=== PATIENT | female | born 1955 | race Caucasian/White ===

== ENCOUNTER 2016-05-04 15:09 | Inpatient (IN) | payer OTHER ==
[~2016-05-04] VITALS: Ht 175.3 cm; Wt 119.7 kg
[2016-05-04] MEDS ORDERED: cloNIDine HCL 0.1 MG TAB PO ONE (15:30)
[2016-05-04 15:46] LABS: Basophils # (auto) 0 uL; Basophils % (auto) 0.1 % (0.0-2.0); Eosinophils # (auto) 0.2 uL; Eosinophils % (auto) 1.6 % (0.0-7.0); Hemoglobin 14.1 g/dL (12.2-16.2); Lymphocytes # (auto) 2.3 uL; Lymphocytes % (auto) 20.8 % (10.0-50.0); Mean Corpuscular Hemoglobin 30.1 pg (28.0-32.0); Mean Corpuscular Hgb Conc. 32.9 g/dL (32.0-36.0); Mean Corpuscular Volume 91.6 fL (80.0-100.0); Mean Platelet Volume 10.3 fL (7.4-10.4); Monocytes # (auto) 0.4 uL; Monocytes % (auto) 3.6 % (0.0-12.0); Neutrophils # (auto) 8.2 uL; Neutrophils % (auto) 73.9 % (37.0-80.0); Platelet Count (auto) 216 10^3/uL (140-450); Red Cell Distribution Width 14.8 % (11.6-16.0); White Blood Cell 11.1 10^3/uL (4.4-10.8)
[2016-05-04] MEDS ORDERED: FUROSEMIDE 40 MG/4 ML VIAL IV ONE ×2 (16:00→17:00)
[2016-05-04] MEDS ORDERED: methylPREDNISolone SOD SUCC 125 MG/2 ML VL IV ONE (16:00)
[2016-05-04 16:08] LABS: Albumin 3.1 g/dL (3.4-5.0); Alkaline Phosphatase 94 U/L (45-117); Anion Gap 10 (5-15); Aspartate Aminotransferase 35 U/L (15-37); BUN/Creatinine Ratio 18.8; Blood Urea Nitrogen 15 mg/dL (7-18); Calcium 7.9 mg/dL (8.5-10.1); Carbon Dioxide 22 mmol/L (21-32); Chloride 112 mmol/L (98-107); GFR African American 94 mL/min; GFR Non-African American 78 mL/min; Glucose 117 mg/dL (74-106); Potassium 4.5 mmol/L (3.5-5.1); Sodium 144 mmol/L (136-145); Total Protein 6.8 g/dL (6.4-8.2)
[2016-05-04] MEDS ORDERED: ALBUTEROL SULF 2.5 MG/0.5ML(0.5%) NEB SOLN NEB PRN (16:30)
[2016-05-04] MEDS ORDERED: MORPHINE SULF INJ 2 MG/ML SYRINGE 1ML IV PRN ×2 (16:30)
[2016-05-04] MEDS ORDERED: DEXTROSE (50%) 50ML SYRG IV PRN (16:30)
[2016-05-04] MEDS ORDERED: NITROGLYCERIN 0.4 MG SL TAB SL PRN (16:30)
[2016-05-04] MEDS ORDERED: TEMAZEPAM 15 MG CAP PO PRN (16:30)
[2016-05-04] MEDS ORDERED: HYDROcodone-ACET 5/325MG TAB PO PRN (16:30)
[2016-05-04] MEDS ORDERED: PROMETHAZINE HCL 25 MG/ML 1ML IV PRN (16:30)
[2016-05-04] MEDS ORDERED: ACETAMINOPHEN 500 MG TAB PO PRN (16:30)
[2016-05-04] MEDS ORDERED: LORazepam 0.5 MG TAB PO PRN (16:30)
[2016-05-04] MEDS ORDERED: LACTULOSE 20Gm/30ML SOLN PO PRN (16:30)
[2016-05-04 16:56] LABS: B-Type Natriuretic Peptide 350.33 pg/mL (0-100); Temperature: 23.5 C (20.0-25.0)
[2016-05-04] MEDS ORDERED: ASPirin 81 mg TAB PO ONE (17:00)
[2016-05-04] MEDS: ACCU-CHEK COMFORT CURVE STRIP VI SCH ×2 (17:00→22:50)
[2016-05-04] MEDS ORDERED: CARVEDILOL 3.125 MG TAB PO ONE (17:00)
[2016-05-04] MEDS ORDERED: ENALAPRIL MALEATE 2.5 MG TAB PO ONE (17:00)
[2016-05-04] MEDS ORDERED: ENOXAPARIN SOD 40 MG/0.4 ML SYRINGE SC ONE (17:15)
[2016-05-04] MEDS: NITROGLYCERIN 0.2MG/HR TOPICAL PATCH TD SCH (17:18)
[2016-05-04] MEDS ORDERED: IBUPROFEN 800 MG TAB PO ONE (17:45)
[2016-05-04] MEDS: InsuLIN REG 1unit/0.01ml Soln (100units/ml) SC SCH ×2 (17:57→22:50)
[2016-05-04] MEDS: IPRATROPIUM BROM 0.5 MG/2.5ML INH SOL NEB SCH ×2 (18:00→23:52)
[2016-05-04] MEDS: ALBUTEROL SULF 2.5 MG/0.5ML(0.5%) NEB SOLN NEB SCH ×2 (18:00→23:52)
[2016-05-04] MEDS ORDERED: IOHEXOL 350 MG/ML 100ML IJ ONE (19:48)
[2016-05-04 22:00] VITALS: BP 188/86
[2016-05-04] MEDS: SODIUM CHLOR 0.9% PF (SALINE LOCK) 10ML VIAL IV SCH (22:50)
[2016-05-04] MEDS: CARVEDILOL 3.125 MG TAB PO SCH (22:50)
[2016-05-04] MEDS: DOXYCYCLINE 100 MG TAB/CAP PO SCH (22:50)
[2016-05-05] MEDS ORDERED: GLIP-115 PO (02:53)
[2016-05-05] MEDS ORDERED: IBUP800T24 PO (02:53)
[2016-05-05] MEDS ORDERED: CAR125T PO (02:53)
[2016-05-05 04:30] VITALS: BP 141/72
[2016-05-05] MEDS: ALBUTEROL SULF 2.5 MG/0.5ML(0.5%) NEB SOLN NEB SCH ×3 (05:20→18:11)
[2016-05-05] MEDS: IPRATROPIUM BROM 0.5 MG/2.5ML INH SOL NEB SCH ×3 (05:20→18:11)
[2016-05-05] MEDS: SODIUM CHLOR 0.9% PF (SALINE LOCK) 10ML VIAL IV SCH (05:29)
[2016-05-05 06:14] LABS: Basophils # (auto) 0 uL; Eosinophils # (auto) 0 uL; Hemoglobin 14.4 g/dL (12.2-16.2); Lymphocytes # (auto) 1.1 uL; Lymphocytes % (auto) 13.5 % (10.0-50.0); Mean Corpuscular Hemoglobin 31.3 pg (28.0-32.0); Mean Corpuscular Hgb Conc. 34.2 g/dL (32.0-36.0); Mean Corpuscular Volume 91.4 fL (80.0-100.0); Mean Platelet Volume 10.9 fL (7.4-10.4); Monocytes # (auto) 0.1 uL; Monocytes % (auto) 1.5 % (0.0-12.0); Neutrophils # (auto) 6.7 uL; Platelet Count (auto) 198 10^3/uL (140-450); Red Cell Distribution Width 14.6 % (11.6-16.0); White Blood Cell 7.9 10^3/uL (4.4-10.8)
[2016-05-05 06:25] LABS: Albumin 3.2 g/dL (3.4-5.0); BUN/Creatinine Ratio 18.4; Calcium 8.1 mg/dL (8.5-10.1); Potassium 3.5 mmol/L (3.5-5.1); Total Protein 6.4 g/dL (6.4-8.2)
[2016-05-05 06:43] LABS: B-Type Natriuretic Peptide 468.6 pg/mL (0-100); Temperature: 22.5 C (20.0-25.0)
[2016-05-05] MEDS: InsuLIN REG 1unit/0.01ml Soln (100units/ml) SC SCH ×3 (07:00→17:00)
[2016-05-05] MEDS: ACCU-CHEK COMFORT CURVE STRIP VI SCH ×3 (07:47→17:00)
[2016-05-05 09:00] VITALS: BP 128/60
[2016-05-05] MEDS ORDERED: POTASSIUM CHL 20 Meq TABLET PO SCH (10:00)
[2016-05-05] MEDS ORDERED: ENALAPRIL MALEATE 2.5 MG TAB PO SCH (10:00)
[2016-05-05] MEDS ORDERED: FUROSEMIDE 40 MG/4 ML VIAL IV SCH (10:00)
[2016-05-05] MEDS: NITROGLYCERIN 0.2MG/HR TOPICAL PATCH TD SCH (10:00)
[2016-05-05] MEDS ORDERED: ENOXAPARIN SOD 40 MG/0.4 ML SYRINGE SC SCH ×2 (10:00)
[2016-05-05] MEDS ORDERED: ASPirin 81 mg TAB PO SCH (10:00)
[2016-05-05] MEDS: CARVEDILOL 3.125 MG TAB PO SCH (12:53)
[2016-05-05] MEDS: DOXYCYCLINE 100 MG TAB/CAP PO SCH (12:54)
[2016-05-05 13:00] VITALS: BP 192/96
[2016-05-05] MEDS ORDERED: ASPI81CH43 PO (14:22)
[2016-05-05] MEDS ORDERED: ENA2.5T PO (14:22)
[2016-05-05] MEDS ORDERED: FURO20TA PO (14:22)
[2016-05-05] MEDS ORDERED: CAR3125T PO (14:22)
[2016-05-05 16:48] VITALS: BP 120/69
[2016-05-05 17:47] VITALS: BP 136/76
== END 2016-05-05 18:00 | disposition home health service (06) | DRG 292 ==
LOC: ER 15:16 → TELE 15:17 → TELE-CENTR 20:30
PROVIDERS: ADMIT Internal Medicine; ATTEND Internal Medicine
DX: I11.0 Hypertensive heart disease with heart failure (principal); J44.1 Chronic obstructive pulmonary disease with (acute) exacerbation; I50.31 Acute diastolic (congestive) heart failure; E11.9 Type 2 diabetes mellitus without complications; E66.9 Obesity, unspecified; I10 Essential (primary) hypertension; K44.9 Diaphragmatic hernia without obstruction or gangrene; N95.1 Menopausal and female climacteric states; Z80.49 Family history of malignant neoplasm of other genital organs; Z82.49 Family history of ischemic heart disease and other diseases of the circulatory system; Z83.3 Family history of diabetes mellitus; Z68.39 Body mass index [BMI] 39.0-39.9, adult; Z71.6 Tobacco abuse counseling
CPT/HCPCS: 36415; 71010; 71275; 80053; 80061; 82550; 82962; 83036; 83880; 84443; 84484; 85025; 85379; 93005; 93306; 94640; 94761; 96372; 96374; 96375; 96376

== ENCOUNTER 2016-10-09 18:08 | Inpatient (IN) | payer SELFPAY ==
[~2016-10-09] VITALS: Ht 175.3 cm; Wt 117.0 kg
[~2016-10-09 18:08] MED LIST: ASPI81CH43 PO; CAR3125T PO; ENA2.5T PO; FURO20TA PO; GLIP-115 PO
[2016-10-09 18:46] LABS: Basophils # (auto) 0 uL; Basophils % (auto) 0.3 % (0.0-2.0); CONDITION Y; Eosinophils # (auto) 0.2 uL; Eosinophils % (auto) 1.7 % (0.0-7.0); Hematocrit 44.1 % (36.0-46.0); Hemoglobin 14.4 g/dL (12.2-16.2); Lymphocytes % (auto) 20.8 % (10.0-50.0); Mean Corpuscular Hemoglobin 29.8 pg (28.0-32.0); Mean Corpuscular Hgb Conc. 32.7 g/dL (32.0-36.0); Mean Corpuscular Volume 91.1 fL (80.0-100.0); Monocytes # (auto) 0.5 uL; Monocytes % (auto) 5.4 % (0.0-12.0); Neutrophils # (auto) 6.8 uL; Neutrophils % (auto) 71.8 % (37.0-80.0); Platelet Count (auto) 263 10^3/uL (140-450); Red Cell Distribution Width 15.6 % (11.6-16.0); White Blood Cell 9.4 10^3/uL (4.4-10.8)
[2016-10-09 19:11] LABS: Albumin 2.9 g/dL (3.4-5.0); Anion Gap 8 (5-15); Aspartate Aminotransferase 14 U/L (15-37); BUN/Creatinine Ratio 18.7; Blood Urea Nitrogen 17 mg/dL (7-18); Calcium 7.7 mg/dL (8.5-10.1); Carbon Dioxide 28 mmol/L (21-32); Chloride 109 mmol/L (98-107); GFR African American 81 mL/min; GFR Non-African American 67 mL/min; Glucose 116 mg/dL (74-106); Magnesium 2.5 mg/dL (1.6-2.6); Potassium 3.9 mmol/L (3.5-5.1); Sodium 145 mmol/L (136-145)
[2016-10-09 19:16] LABS: Alkaline Phosphatase 88 U/L (45-117); Bilirubin, Total 0.8 mg/dL (0.2-1.0); Total Protein 6.5 g/dL (6.4-8.2)
[2016-10-09 19:22] LABS: B-Type Natriuretic Peptide 339.66 pg/mL (0-100)
[2016-10-09 19:24] LABS: Temperature: 23.1 C (20.0-25.0)
[2016-10-09] MEDS ORDERED: CARVEDILOL 12.5 MG TAB PO ONE (20:00)
[2016-10-09] MEDS ORDERED: ALBUTEROL SULF 2.5 MG/0.5ML(0.5%) NEB SOLN NEB ONE (20:30)
[2016-10-09] MEDS ORDERED: IPRATROPIUM BROM 0.5 MG/2.5ML INH SOL NEB ONE (20:30)
[2016-10-09] MEDS ORDERED: FUROSEMIDE 20 MG/2 ML VIAL IV ONE (20:30)
[2016-10-09] MEDS ORDERED: glipiZIDE 5 MG TAB PO ONE (20:45)
[2016-10-09] MEDS ORDERED: CARV25TA PO (21:13)
[2016-10-09] MEDS ORDERED: FURO40TA PO (21:13)
[2016-10-09] MEDS ORDERED: CAR125T PO (21:13)
[2016-10-10] MEDS ORDERED: ONDANSETRON HCL 4 MG/2 ML VIAL IV PRN (06:45)
[2016-10-10] MEDS ORDERED: cloNIDine HCL 0.1 MG TAB PO PRN (06:45)
[2016-10-10] MEDS ORDERED: TEMAZEPAM 15 MG CAP PO PRN (06:45)
[2016-10-10] MEDS ORDERED: NITROGLYCERIN 0.4 MG SL TAB SL PRN (06:45)
[2016-10-10] MEDS ORDERED: DEXTROSE (50%) 50ML SYRG IV PRN (06:45)
[2016-10-10] MEDS ORDERED: ACETAMINOPHEN 325 MG TAB PO PRN (06:45)
[2016-10-10] MEDS ORDERED: IPRATROPIUM BROM 0.5 MG/2.5ML INH SOL NEB PRN (06:45)
[2016-10-10] MEDS ORDERED: ALBUTEROL SULF 2.5 MG/0.5ML(0.5%) NEB SOLN NEB PRN (06:45)
[2016-10-10] MEDS ORDERED: MORPHINE SULF INJ 2 MG/ML SYRINGE 1ML IV PRN (06:45)
[2016-10-10] MEDS: FAMOTIDINE 20 MG TAB PO SCH ×2 (10:00→21:34)
[2016-10-10] MEDS: ENOXAPARIN SOD 40 MG/0.4 ML SYRINGE SC SCH (10:00)
[2016-10-10 10:31] VITALS: BP 178/85
[2016-10-10] MEDS: CARVEDILOL 12.5 MG TAB PO SCH (11:15)
[2016-10-10] MEDS: FUROSEMIDE 40 MG TAB PO SCH (11:15)
[2016-10-10] MEDS: ASPirin 81 mg TAB PO SCH (11:15)
[2016-10-10] MEDS: ACCU-CHEK COMFORT CURVE STRIP VI SCH ×2 (11:26→16:56)
[2016-10-10 11:30] VITALS: BP 150/77
[2016-10-10] MEDS: POTASSIUM CHL 10% (20 MEQ/15ML) ORAL SOLN PO ONE ×2 (12:00→12:12)
[2016-10-10] MEDS ORDERED: FUROSEMIDE 100 MG/10ML VIAL IV ONE (12:00)
[2016-10-10] MEDS: InsuLIN REG 1unit/0.01ml Soln (100units/ml) SC SCH ×2 (12:11→16:56)
[2016-10-10] MEDS ORDERED: methylPREDNISolone SOD SUCC 40 MG/ML VL IV ONE (15:30)
[2016-10-10 17:13] VITALS: BP 156/78
[2016-10-10] MEDS: guaiFENesin-DEXTROMETHORPHAN 5ML SYR PO PRN ×2 (17:21→21:35)
[2016-10-10 20:00] VITALS: BP 143/69
[2016-10-10] MEDS: methylPREDNISolone SOD SUCC 40 MG/ML VL IV SCH (21:34)
[2016-10-11] MEDS: ACCU-CHEK COMFORT CURVE STRIP VI SCH ×4 (00:05→17:03)
[2016-10-11] MEDS: InsuLIN REG 1unit/0.01ml Soln (100units/ml) SC SCH ×4 (00:06→18:00)
[2016-10-11 05:00] VITALS: BP 145/85
[2016-10-11 06:33] LABS: Basophils # (auto) 0 uL; Basophils % (auto) 0.2 % (0.0-2.0); CONDITION Y; Eosinophils # (auto) 0 uL; Hematocrit 46.1 % (36.0-46.0); Hemoglobin 15.1 g/dL (12.2-16.2); Lymphocytes % (auto) 10.4 % (10.0-50.0); Mean Corpuscular Hemoglobin 29.9 pg (28.0-32.0); Mean Corpuscular Hgb Conc. 32.7 g/dL (32.0-36.0); Mean Corpuscular Volume 91.2 fL (80.0-100.0); Mean Platelet Volume 9.6 fL (7.4-10.4); Monocytes # (auto) 0.1 uL; Monocytes % (auto) 1.5 % (0.0-12.0); Neutrophils # (auto) 8.2 uL; Neutrophils % (auto) 87.9 % (37.0-80.0); Platelet Count (auto) 264 10^3/uL (140-450); Red Cell Distribution Width 14.8 % (11.6-16.0); SUSPECT SEE PRINTOUT; White Blood Cell 9.3 10^3/uL (4.4-10.8)
[2016-10-11 07:01] LABS: Albumin 3.2 g/dL (3.4-5.0); BUN/Creatinine Ratio 17.6; Calcium 8.5 mg/dL (8.5-10.1); Magnesium 2.5 mg/dL (1.6-2.6); Total Protein 7.1 g/dL (6.4-8.2)
[2016-10-11 08:00] VITALS: BP 157/79
[2016-10-11 09:29] VITALS: BP 157/79
[2016-10-11] MEDS: ENOXAPARIN SOD 40 MG/0.4 ML SYRINGE SC SCH (10:00)
[2016-10-11] MEDS: CARVEDILOL 12.5 MG TAB PO SCH (10:00)
[2016-10-11] MEDS: FAMOTIDINE 20 MG TAB PO SCH ×2 (10:37→21:40)
[2016-10-11] MEDS: ASPirin 81 mg TAB PO SCH (10:37)
[2016-10-11] MEDS: methylPREDNISolone SOD SUCC 40 MG/ML VL IV SCH (10:38)
[2016-10-11] MEDS: FUROSEMIDE 40 MG TAB PO SCH (10:38)
[2016-10-11] MEDS ORDERED: DOBUTamine 1000MCG/ML 0 ML IV ONE (11:15)
[2016-10-11 17:08] VITALS: BP 149/54
[2016-10-11 20:00] VITALS: BP 163/85
[2016-10-11 21:30] VITALS: BP 163/85
[2016-10-11] MEDS ORDERED: ATORVASTATIN 20 MG TAB PO SCH (22:00)
[2016-10-12] MEDS: ACCU-CHEK COMFORT CURVE STRIP VI SCH ×4 (00:02→17:39)
[2016-10-12 05:00] VITALS: BP 166/85
[2016-10-12] MEDS: InsuLIN REG 1unit/0.01ml Soln (100units/ml) SC SCH ×4 (05:21→18:00)
[2016-10-12 06:34] LABS: Calcium 8.3 mg/dL (8.5-10.1); Potassium 3.5 mmol/L (3.5-5.1)
[2016-10-12 06:37] LABS: BUN/Creatinine Ratio 21.4
[2016-10-12 09:00] VITALS: BP 169/90
[2016-10-12] MEDS: FUROSEMIDE 40 MG TAB PO SCH (10:00)
[2016-10-12] MEDS: FAMOTIDINE 20 MG TAB PO SCH (10:00)
[2016-10-12] MEDS ORDERED: predniSONE 20 MG TAB PO SCH (10:00)
[2016-10-12] MEDS: ENOXAPARIN SOD 40 MG/0.4 ML SYRINGE SC SCH (10:00)
[2016-10-12] MEDS: ASPirin 81 mg TAB PO SCH (10:00)
[2016-10-12] MEDS: CARVEDILOL 12.5 MG TAB PO SCH (10:00)
[2016-10-12] MEDS ORDERED: IBUP800T24 PO (10:14)
[2016-10-12 13:00] VITALS: BP 153/77
[2016-10-12] MEDS ORDERED: ATOR20TA50 PO (13:03)
[2016-10-12] MEDS ORDERED: DOBUTamine 1000MCG/ML 250 ML IV ONE (15:02)
[2016-10-12 18:15] VITALS: BP 153/77
== END 2016-10-12 19:15 | disposition home or self-care (01) | DRG 292 ==
LOC: ER 18:14 → TELE 18:15 → TELE-E-ADS 10-10 08:05 → TELE-CENTR 10-10 11:23
PROVIDERS: ADMIT Nurse Practitioner; ATTEND Internal Medicine
DX: I11.0 Hypertensive heart disease with heart failure (principal); J44.1 Chronic obstructive pulmonary disease with (acute) exacerbation; J96.10 Chronic respiratory failure, unspecified whether with hypoxia or hypercapnia; J44.0 Chronic obstructive pulmonary disease with (acute) lower respiratory infection; E11.65 Type 2 diabetes mellitus with hyperglycemia; I34.0 Nonrheumatic mitral (valve) insufficiency; F17.210 Nicotine dependence, cigarettes, uncomplicated; I70.0 Atherosclerosis of aorta; E66.01 Morbid (severe) obesity due to excess calories; E78.5 Hyperlipidemia, unspecified; J20.9 Acute bronchitis, unspecified; I50.33 Acute on chronic diastolic (congestive) heart failure; Z79.4 Long term (current) use of insulin; Z83.3 Family history of diabetes mellitus
CPT/HCPCS: 36415; 71020; 78452; 80048; 80053; 80061; 82962; 83036; 83735; 83880; 84484; 85025; 93005; 93017; 93970; 94640; 96374; J1815

== ENCOUNTER 2017-12-11 20:19 | Emergency (ER) | payer MEDICAID ==
[~2017-12-11] VITALS: Ht 172.7 cm; Wt 117.0 kg
[~2017-12-11 20:19] MED LIST changes: -ASPI81CH43 PO; +CAR125T PO; -CAR3125T PO; +CARV25TA PO; -ENA2.5T PO; -FURO20TA PO; +FURO40TA4 PO; +IBUP800T24 PO
[2017-12-11 21:12] LABS: Basophils # (auto) 0 uL; Eosinophils # (auto) 0.2 uL; Monocytes # (auto) 0.5 uL
[2017-12-11 21:14] LABS: Basophils % (auto) 0.5 % (0.0-2.0); Hematocrit 41.5 % (36.0-46.0); Hemoglobin 13.4 g/dL (12.2-16.2); Lymphocytes # (auto) 2.1 uL; Lymphocytes % (auto) 28.8 % (10.0-50.0); Mean Corpuscular Hgb Conc. 32.2 g/dL (32.0-36.0); Mean Corpuscular Volume 80.6 fL (80.0-100.0); Monocytes % (auto) 6.5 % (0.0-12.0); Neutrophils # (auto) 4.6 uL; Neutrophils % (auto) 61.2 % (37.0-80.0); Nucleated Red Blood Cells % 0.1 %; Platelet Count (auto) 193 10^3/uL (140-450); Red Blood Cells 5.15 10^6/uL (4.0-5.20); White Blood Cell 7.5 10^3/uL (4.4-10.8)
[2017-12-11 21:26] LABS: Albumin 3.1 g/dL (3.4-5.0); Anion Gap 7 (5-15); Blood Urea Nitrogen 10 mg/dL (7-18); Calcium 7.8 mg/dL (8.5-10.1); Carbon Dioxide 24 mmol/L (21-32); Chloride 111 mmol/L (98-107); Glucose 127 mg/dL (74-106); Potassium 3.7 mmol/L (3.5-5.1); Red Cell Distribution Width 24.4 % (11.8-14.3); Sodium 142 mmol/L (136-145)
[2017-12-11 21:28] LABS: Alanine Aminotransferase 20 U/L (13-56); Aspartate Aminotransferase 19 U/L (15-37); BUN/Creatinine Ratio 10.2; GFR African American 74 mL/min; GFR Non-African American 61 mL/min
[2017-12-11 21:32] LABS: Alkaline Phosphatase 84 U/L (45-117); Bilirubin, Total 0.7 mg/dL (0.2-1.0); Total Protein 6.5 g/dL (6.4-8.2)
[2017-12-11 21:45] LABS: Urine Bacteria FEW /hpf (None Seen); Urine Blood Negative /uL (Negative); Urine Hyaline Cast FEW /lpf (0 - 2); Urine Mucus FEW (None Seen); Urine Specific Gravity 1.031 (1.001-1.035); Urine WBC 4 /hpf (0 - 5)
[2017-12-11 23:10] LABS: INR 0.96 (0.9-1.15); Partial Thromboplastin Time 25.7 sec (23.78-33.04); Prothrombin Time 10.3 sec (9.27-12.13)
[2017-12-11 23:38] VITALS: BP 168/95
== END 2017-12-12 00:05 | disposition home or self-care (01) ==
LOC: ER 20:19
DX: I11.0 Hypertensive heart disease with heart failure (principal); I50.9 Heart failure, unspecified; J44.9 Chronic obstructive pulmonary disease, unspecified; E11.9 Type 2 diabetes mellitus without complications; E78.5 Hyperlipidemia, unspecified; F17.210 Nicotine dependence, cigarettes, uncomplicated
CPT/HCPCS: 36415; 36600; 71045; 80053; 81001; 82805; 83735; 83880; 84443; 84484; 85025; 85379; 85610; 85730; 93005

== ENCOUNTER 2018-05-26 11:26 | Emergency (ER) | payer MEDICAID ==
[~2018-05-26] VITALS: Ht 172.7 cm; Wt 114.3 kg
[2018-05-26 12:50] LABS: Urine Bacteria NONE SEEN /hpf (None Seen); Urine Blood Negative /uL (Negative); Urine Mucus FEW (None Seen); Urine Specific Gravity 1.034 (1.001-1.035); Urine WBC 7 /hpf (0 - 5)
[2018-05-26] MEDS ORDERED: HYDROcodone-ACET 10/325MG TAB PO ONE (14:00)
[2018-05-26] MEDS ORDERED: cefTRIAXone 1GM/50ML D5W 50 ML IV ONE (14:00)
[2018-05-26 14:30] LABS: Basophils # (auto) 0 uL; Eosinophils # (auto) 0.1 uL; Eosinophils % (auto) 1.5 % (0.0-7.0); Mean Corpuscular Hemoglobin 24.1 pg (28.0-32.0); Nucleated Red Blood Cells % 0.1 %
[2018-05-26 14:33] LABS: Basophils % (auto) 0.3 % (0.0-2.0); Hematocrit 41.2 % (36.0-46.0); Hemoglobin 12.6 g/dL (12.2-16.2); Lymphocytes # (auto) 1.4 uL; Lymphocytes % (auto) 19.7 % (10.0-50.0); Mean Corpuscular Hgb Conc. 30.6 g/dL (32.0-36.0); Monocytes # (auto) 0.5 uL; Monocytes % (auto) 7.3 % (0.0-12.0); Neutrophils # (auto) 4.9 uL; Neutrophils % (auto) 71.2 % (37.0-80.0); Platelet Count (auto) 206 10^3/uL (140-450); Red Blood Cells 5.22 10^6/uL (4.0-5.20)
[2018-05-26 14:53] LABS: INR 1.04 (0.9-1.15); Partial Thromboplastin Time 26.8 sec (23.78-33.04); Prothrombin Time 11.1 sec (9.27-12.13)
[2018-05-26 15:15] LABS: Potassium 4.2 mmol/L (3.5-5.1)
[2018-05-26 15:24] LABS: Albumin 2.9 g/dL (3.4-5.0); Bilirubin, Total 0.9 mg/dL (0.2-1.0); Calcium 7.9 mg/dL (8.5-10.1); Magnesium 2.3 mg/dL (1.6-2.6); Total Protein 6.5 g/dL (6.4-8.2)
[2018-05-26 19:59] VITALS: BP 145/82
== END 2018-05-26 20:10 | disposition short-term general hospital (02) ==
LOC: ER 11:26
DX: S22.089D Unspecified fracture of T11-T12 vertebra, subsequent encounter for fracture with routine healing (principal); S32.019D Unspecified fracture of first lumbar vertebra, subsequent encounter for fracture with routine healing; L03.311 Cellulitis of abdominal wall; J44.9 Chronic obstructive pulmonary disease, unspecified; E11.9 Type 2 diabetes mellitus without complications; E78.5 Hyperlipidemia, unspecified; I11.0 Hypertensive heart disease with heart failure; I50.9 Heart failure, unspecified; F17.210 Nicotine dependence, cigarettes, uncomplicated; Z88.0 Allergy status to penicillin; Z88.8 Allergy status to other drugs, medicaments and biological substances; Z79.84 Long term (current) use of oral hypoglycemic drugs; Z79.899 Other long term (current) drug therapy; W18.30XD Fall on same level, unspecified, subsequent encounter
CPT/HCPCS: 36415; 72131; 74176; 80053; 81001; 82150; 83605; 83690; 83735; 85025; 85610; 85730; 87040; 93005; 94761; 96365; 96366; 99291; J0696

== ENCOUNTER 2021-12-02 20:46 | Inpatient (IN) | payer OTHER, BC, MEDICAID ==
[~2021-12-02] VITALS: Ht 172.7 cm; Wt 98.0 kg
[~2021-12-02 20:46] MED LIST changes: -GLIP-115 PO; +GLIP5TAB12 PO; -IBUP800T24 PO; +IBUP800T27 PO
[2021-12-02] MEDS ORDERED: FUROSEMIDE 100 MG/10ML VIAL IV ONE (22:15)
[2021-12-02 23:16] LABS: Basophils # (auto) 0 10 ^3/uL (0-0.2); Basophils % (auto) 0.7 % (0.0-2.0); Eosinophils # (auto) 0.1 10 ^3/uL (0-0.8); Eosinophils % (auto) 1.9 % (0.0-7.0); Hematocrit 39.2 % (36.0-46.0); Hemoglobin 13.1 g/dL (12.2-16.2); Lymphocytes # (auto) 1.5 10 ^3/uL (0.4-5.4); Lymphocytes % (auto) 31.2 % (10.0-50.0); Mean Corpuscular Hemoglobin 32.5 pg (28.0-32.0); Mean Corpuscular Hgb Conc. 33.5 g/dL (32.0-36.0); Mean Corpuscular Volume 96.8 fL (80.0-100.0); Monocytes # (auto) 0.3 10 ^3/uL (0-1.3); Monocytes % (auto) 6.4 % (0.0-12.0); Neutrophils # (auto) 2.9 10 ^3/uL (1.6-8.6); Neutrophils % (auto) 59.8 % (37.0-80.0); Nucleated Red Blood Cells % 0.1 %; Red Blood Cells 4.05 10^6/uL (4.0-5.20); Red Cell Distribution Width 15.4 % (11.8-14.3); White Blood Cell 4.8 10^3/uL (4.4-10.8)
[2021-12-02 23:24] LABS: Albumin 2.7 g/dL (3.4-5.0); Calcium 7.9 mg/dL (8.5-10.1); Magnesium 2.4 mg/dL (1.6-2.6); Potassium 3.5 mmol/L (3.5-5.1)
[2021-12-02 23:29] LABS: BUN/Creatinine Ratio 8.8; Bilirubin, Total 0.8 mg/dL (0.2-1.0); CRP High Sensitivity 0.55 mg/dL (< 0.3); Total Protein 5.8 g/dL (6.4-8.2)
[2021-12-03] MEDS ORDERED: CLIN300C8 PO (04:11)
[2021-12-03] MEDS ORDERED: VANCOMYCIN 1GM/250ML 250 ML IV ONE (05:15)
[2021-12-03] MEDS ORDERED: CEFEPIME 2 GM in SODIUM CHL 0.9% 50 ML IV ONE (05:15)
[2021-12-03] MEDS ORDERED: hydrALAZINE HCL 20 MG/ML VL IV PRN (07:00)
[2021-12-03] MEDS ORDERED: HYDROcodone-ACET 5/325MG TAB PO PRN ×2 (07:00→12:00)
[2021-12-03] MEDS ORDERED: ACETAMINOPHEN 325 MG TAB PO PRN (07:00)
[2021-12-03] MEDS ORDERED: DOCUSATE SOD 100 MG CAP PO PRN (07:00)
[2021-12-03] MEDS ORDERED: MORPHINE SULFATE INJ 2 MG/ml SYRG IV PRN (07:00)
[2021-12-03] MEDS ORDERED: ONDANSETRON HCL 4 MG/2 ML VIAL IV PRN (07:00)
[2021-12-03] MEDS ORDERED: NITROGLYCERIN 0.4 MG SL TAB SL PRN (07:00)
[2021-12-03] MEDS ORDERED: DEXTROSE (50%) 50ML SYRG IV PRN (07:00)
[2021-12-03 07:23] LABS: Basophils # (auto) 0 10 ^3/uL (0-0.2); Basophils % (auto) 0.7 % (0.0-2.0); Eosinophils # (auto) 0.1 10 ^3/uL (0-0.8); Eosinophils % (auto) 1.6 % (0.0-7.0); Hematocrit 36.6 % (36.0-46.0); Lymphocytes # (auto) 1.2 10 ^3/uL (0.4-5.4); Lymphocytes % (auto) 29.3 % (10.0-50.0); Mean Corpuscular Hemoglobin 31.5 pg (28.0-32.0); Mean Corpuscular Hgb Conc. 32.8 g/dL (32.0-36.0); Mean Corpuscular Volume 95.9 fL (80.0-100.0); Monocytes # (auto) 0.3 10 ^3/uL (0-1.3); Monocytes % (auto) 6.7 % (0.0-12.0); Neutrophils # (auto) 2.6 10 ^3/uL (1.6-8.6); Neutrophils % (auto) 61.7 % (37.0-80.0); Nucleated Red Blood Cells % 0.1 %; Red Blood Cells 3.82 10^6/uL (4.0-5.20); Red Cell Distribution Width 15.2 % (11.8-14.3); White Blood Cell 4.2 10^3/uL (4.4-10.8)
[2021-12-03 07:33] LABS: Albumin 2.3 g/dL (3.4-5.0); Calcium 7.4 mg/dL (8.5-10.1); Potassium 3.3 mmol/L (3.5-5.1)
[2021-12-03 07:36] LABS: BUN/Creatinine Ratio 10.5; Bilirubin, Total 0.9 mg/dL (0.2-1.0)
[2021-12-03] MEDS ORDERED: ALBUMIN 25% 100 ML IV ONE (07:45)
[2021-12-03] MEDS ORDERED: VANCOMYCIN PER PHARMACY 0 MG IV SCH (07:45)
[2021-12-03] MEDS ORDERED: HEPARIN SODIUM (PORCINE) 5000 UNITS/ML 1ML VIAL SC SCH (10:00)
[2021-12-03] MEDS ORDERED: levoFLOXacin 250MG 50 ML IV SCH (10:00)
[2021-12-03] MEDS ORDERED: levoFLOXacin 500MG 100 ML IV SCH (10:00)
[2021-12-03] MEDS ORDERED: FUROSEMIDE 40 MG/4 ML VIAL IV SCH (10:00)
[2021-12-03 10:41] LABS: Urine Bacteria FEW /hpf (None Seen); Urine Blood Negative /uL (Negative); Urine Mucus FEW (None Seen); Urine Specific Gravity 1.017 (1.001-1.035); Urine WBC 2 /hpf (0 - 5)
[2021-12-03] MEDS: ACCU-CHEK COMFORT CURVE STRIP VI SCH ×5 (11:20→22:00)
[2021-12-03] MEDS: InsuLIN REG 1unit/0.01ml Soln (100units/ml) SC SCH ×4 (11:20→22:00)
[2021-12-03] MEDS: FAMOTIDINE (10MG/ML) 2ML VL IV SCH ×2 (11:33→22:00)
[2021-12-03] MEDS: CARVEDILOL 12.5 MG TAB PO SCH (11:33)
[2021-12-03] MEDS ORDERED: POTASSIUM CHL 20MEQ/100ML 100 ML IV ONE (12:00)
[2021-12-03] MEDS: SODIUM CHLOR 0.9% PF (SALINE LOCK) 10ML VIAL/SYR IV SCH ×2 (14:41→22:00)
[2021-12-03] MEDS ORDERED: ATORVASTATIN 20 MG TAB PO SCH (22:00)
[2021-12-03 22:43] VITALS: BP 129/111
[2021-12-03] MEDS: VANCOMYCIN 1GM/250ML 250 ML IV SCH (23:00)
[2021-12-04] MEDS: CARVEDILOL 12.5 MG TAB PO SCH ×2 (00:24→11:38)
[2021-12-04 04:30] VITALS: BP 110/54
[2021-12-04 05:05] LABS: Basophils # (auto) 0 10 ^3/uL (0-0.2); Basophils % (auto) 0.8 % (0.0-2.0); Eosinophils # (auto) 0 10 ^3/uL (0-0.8); Eosinophils % (auto) 1.4 % (0.0-7.0); Hematocrit 34.6 % (36.0-46.0); Hemoglobin 11.5 g/dL (12.2-16.2); Lymphocytes # (auto) 1.4 10 ^3/uL (0.4-5.4); Mean Corpuscular Hemoglobin 32.2 pg (28.0-32.0); Mean Corpuscular Hgb Conc. 33.2 g/dL (32.0-36.0); Mean Corpuscular Volume 96.8 fL (80.0-100.0); Monocytes # (auto) 0.2 10 ^3/uL (0-1.3); Monocytes % (auto) 5.7 % (0.0-12.0); Neutrophils # (auto) 1.5 10 ^3/uL (1.6-8.6); Neutrophils % (auto) 48.1 % (37.0-80.0); Nucleated Red Blood Cells % 0.1 %; Red Blood Cells 3.57 10^6/uL (4.0-5.20); Red Cell Distribution Width 15.2 % (11.8-14.3); White Blood Cell 3.1 10^3/uL (4.4-10.8)
[2021-12-04] MEDS: SODIUM CHLOR 0.9% PF (SALINE LOCK) 10ML VIAL/SYR IV SCH ×2 (05:18→14:00)
[2021-12-04 05:19] LABS: Potassium 3.7 mmol/L (3.5-5.1)
[2021-12-04] MEDS: InsuLIN REG 1unit/0.01ml Soln (100units/ml) SC SCH ×3 (05:19→17:55)
[2021-12-04] MEDS: ACCU-CHEK COMFORT CURVE STRIP VI SCH ×3 (05:19→17:55)
[2021-12-04 05:23] LABS: Albumin 2.4 g/dL (3.4-5.0); BUN/Creatinine Ratio 10.3; Calcium 7.7 mg/dL (8.5-10.1)
[2021-12-04 09:00] VITALS: BP 113/61
[2021-12-04] MEDS ORDERED: POTASSIUM CHL 20 Meq TABLET PO SCH (10:00)
[2021-12-04] MEDS ORDERED: FUROSEMIDE 20 MG TAB PO ONE (11:00)
[2021-12-04] MEDS ORDERED: FAMOTIDINE 20 MG TAB PO ONE (11:00)
[2021-12-04] MEDS ORDERED: levoFLOXacin 500 MG TAB PO ONE (11:00)
[2021-12-04] MEDS: VANCOMYCIN 1GM/250ML 250 ML IV SCH (11:38)
[2021-12-04] MEDS ORDERED: CARV25TA PO (18:09)
[2021-12-04] MEDS ORDERED: POTA10TA32 PO (18:09)
[2021-12-04] MEDS ORDERED: FURO40TA4 PO (18:09)
[2021-12-04] MEDS ORDERED: LEVO-28 PO (18:09)
[2021-12-04] MEDS ORDERED: IBUP800T27 PO (18:09)
[2021-12-04] MEDS ORDERED: ATOR20TA50 PO (18:09)
[2021-12-04 19:15] VITALS: BP 113/61
[2021-12-04] MEDS ORDERED: FAMOTIDINE 20 MG TAB PO SCH (22:00)
[2021-12-05] MEDS ORDERED: levoFLOXacin 500 MG TAB PO SCH (10:00)
[2021-12-05] MEDS ORDERED: FUROSEMIDE 20 MG TAB PO SCH (10:00)
== END 2021-12-04 20:11 | disposition home or self-care (01) | DRG 291 ==
LOC: ER 20:46 → TELE 12-03 06:59 → TELE-CENTR 12-03 22:01
PROVIDERS: ADMIT Nurse Practitioner Family; ATTEND Internal Medicine
DX: I11.0 Hypertensive heart disease with heart failure (principal); I50.33 Acute on chronic diastolic (congestive) heart failure; E46 Unspecified protein-calorie malnutrition; E87.0 Hyperosmolality and hypernatremia; N39.0 Urinary tract infection, site not specified; M48.56XA Collapsed vertebra, not elsewhere classified, lumbar region, initial encounter for fracture; E11.9 Type 2 diabetes mellitus without complications; E78.5 Hyperlipidemia, unspecified; E87.5 Hyperkalemia; E88.09 Other disorders of plasma-protein metabolism, not elsewhere classified; F17.210 Nicotine dependence, cigarettes, uncomplicated; G89.29 Other chronic pain; R19.7 Diarrhea, unspecified; Z20.822 Contact with and (suspected) exposure to COVID-19; I87.2 Venous insufficiency (chronic) (peripheral); J44.9 Chronic obstructive pulmonary disease, unspecified; R29.6 Repeated falls; Z53.20 Procedure and treatment not carried out because of patient's decision for unspecified reasons; Z59.01 Sheltered homelessness; Z80.51 Family history of malignant neoplasm of kidney; Z82.49 Family history of ischemic heart disease and other diseases of the circulatory system; Z83.3 Family history of diabetes mellitus; Z91.199 Patient's noncompliance with other medical treatment and regimen due to unspecified reason; Z80.49 Family history of malignant neoplasm of other genital organs; Z88.0 Allergy status to penicillin; Z88.8 Allergy status to other drugs, medicaments and biological substances
CPT/HCPCS: 36415; 71045; 72100; 72131; 72148; 80053; 81001; 82962; 83605; 83735; 83880; 84295; 84484; 85025; 86141; 87045; 87086; 87177; 87426; 87427; 87493; 93005; 93306; 93970; 96365; 96367; 96375; 97163; G0378; J1956; J3480; J3490; P9047

== ENCOUNTER 2022-08-07 23:26 | Emergency (ER) | payer OTHER, BC, MEDICAID ==
[~2022-08-07] VITALS: Ht 175.3 cm; Wt 81.0 kg
[~2022-08-07 23:26] MED LIST changes: +ATOR20TA50 PO; -CAR125T PO; +IBUP-1456 PO; -IBUP800T27 PO; +LEVO500T91 PO; +POTA-228 PO
[2022-08-08 00:04] LABS: Basophils # (auto) 0 10 ^3/uL (0-0.2); Basophils % (auto) 0.7 % (0.0-2.0); Eosinophils # (auto) 0.1 10 ^3/uL (0-0.8); Eosinophils % (auto) 2.9 % (0.0-7.0); Hematocrit 39.7 % (36.0-46.0); Hemoglobin 13.1 g/dL (12.2-16.2); Lymphocytes # (auto) 1.5 10 ^3/uL (0.4-5.4); Lymphocytes % (auto) 37.1 % (10.0-50.0); Mean Corpuscular Volume 90.9 fL (80.0-100.0); Monocytes # (auto) 0.3 10 ^3/uL (0-1.3); Monocytes % (auto) 7.4 % (0.0-12.0); Neutrophils # (auto) 2.2 10 ^3/uL (1.6-8.6); Neutrophils % (auto) 51.9 % (37.0-80.0); Nucleated Red Blood Cells % 0.1 %; Red Blood Cells 4.37 10^6/uL (4.0-5.20); Red Cell Distribution Width 15.3 % (11.8-14.3); White Blood Cell 4.2 10^3/uL (4.4-10.8)
[2022-08-08 00:21] LABS: INR 1.04 (0.9-1.15); Partial Thromboplastin Time 26.5 sec (24.6-33.4)
[2022-08-08 00:23] LABS: Albumin 2.4 g/dL (3.4-5.0); BUN/Creatinine Ratio 14.3 (10.0-20.0); Calcium 7.9 mg/dL (8.5-10.1); Potassium 3.1 mmol/L (3.5-5.1)
[2022-08-08 00:26] LABS: Bilirubin, Total 0.7 mg/dL (0.2-1.0); Total Protein 5.7 g/dL (6.4-8.2)
[2022-08-08] MEDS ORDERED: OXYCODONE W/ ACETAMINOPHEN 5/325MG TABLET PO ONE (05:45)
[2022-08-08] MEDS ORDERED: ZOFR4T PO (05:50)
[2022-08-08] MEDS ORDERED: PERCOT PO ×2 (05:50)
[2022-08-08 06:40] VITALS: BP 162/63
[2022-08-09] MEDS ORDERED: PERCOT PO (09:10)
== END 2022-08-08 05:39 | disposition home or self-care (01) ==
LOC: ER 23:26 → EDBD 23:26 → ER 08-08 05:39
DX: R51.9 Headache, unspecified (principal); M25.511 Pain in right shoulder; R07.89 Other chest pain; I11.0 Hypertensive heart disease with heart failure; I50.9 Heart failure, unspecified; J44.9 Chronic obstructive pulmonary disease, unspecified; E11.9 Type 2 diabetes mellitus without complications; E78.5 Hyperlipidemia, unspecified; F17.210 Nicotine dependence, cigarettes, uncomplicated; Z79.1 Long term (current) use of non-steroidal anti-inflammatories (NSAID); Z79.2 Long term (current) use of antibiotics; Z79.899 Other long term (current) drug therapy; Z88.0 Allergy status to penicillin; Z88.8 Allergy status to other drugs, medicaments and biological substances; Z59.00 Homelessness unspecified; W19.XXXA Unspecified fall, initial encounter; Y93.89 Activity, other specified; Y92.89 Other specified places as the place of occurrence of the external cause; Y99.8 Other external cause status
CPT/HCPCS: 36415; 70450; 70486; 71045; 71250; 72125; 73030; 74176; 80053; 83735; 83880; 84484; 85025; 85610; 85730

== ENCOUNTER 2023-02-05 15:09 | Emergency (ER) | payer OTHER, MEDICARE, MEDICAID ==
[~2023-02-05] VITALS: Ht 172.7 cm; Wt 84.3 kg
[~2023-02-05 15:09] MED LIST changes: +PERCOT PO; +ZOFR4T PO
[2023-02-05 16:00] LABS: Basophils # (auto) 0.1 10 ^3/uL (0-0.2); Basophils % (auto) 1.1 % (0.0-2.0); Eosinophils # (auto) 0.1 10 ^3/uL (0-0.8); Eosinophils % (auto) 2.3 % (0.0-7.0); Hematocrit 41.1 % (36.0-46.0); Hemoglobin 13.5 g/dL (12.2-16.2); Lymphocytes # (auto) 1.5 10 ^3/uL (0.4-5.4); Lymphocytes % (auto) 28.9 % (10.0-50.0); Mean Corpuscular Hemoglobin 30.2 pg (28.0-32.0); Mean Corpuscular Hgb Conc. 32.9 g/dL (32.0-36.0); Mean Corpuscular Volume 91.8 fL (80.0-100.0); Monocytes # (auto) 0.3 10 ^3/uL (0-1.3); Monocytes % (auto) 5.7 % (0.0-12.0); Neutrophils # (auto) 3.3 10 ^3/uL (1.6-8.6); Nucleated Red Blood Cells % 0.1 %; Red Blood Cells 4.47 10^6/uL (4.0-5.20); Red Cell Distribution Width 15.5 % (11.8-14.3); White Blood Cell 5.2 10^3/uL (4.4-10.8)
[2023-02-05 16:23] LABS: Alanine Aminotransferase 14 U/L (7-40); Albumin 3.7 g/dL (3.2-4.8); Alkaline Phosphatase 97 U/L (46-116); Anion Gap 5 (5-15); Aspartate Aminotransferase 23 U/L (13-40); BUN/Creatinine Ratio 12.6 (10.0-20.0); Bilirubin, Total 1.1 mg/dL (0.2-1.0); Blood Urea Nitrogen 11 mg/dL (9-23); Calcium 8.4 mg/dL (8.7-10.4); Carbon Dioxide 26 mmol/L (20-30); Chloride 108 mmol/L (98-107); Glucose 140 mg/dL (74-106); Sodium 139 mmol/L (136-145); Total Protein 6.1 g/dL (5.7-8.2)
[2023-02-05 18:17] LABS: Urine Bacteria MANY /hpf (None Seen); Urine Blood 1+ /uL (Negative); Urine Clarity Clear (Clear); Urine Color Yellow (Yellow); Urine Protein, UAD Negative (Negative); Urine Specific Gravity 1.016 (1.001-1.035); Urine WBC 4 /hpf (0 - 5); Urine pH 6.5 (5.0-8.0)
[2023-02-05 18:50] VITALS: BP 161/85; PULSE 87; RESP 19; TEMP 97.8; O2SAT 95
== END 2023-02-05 18:51 | disposition home or self-care (01) ==
LOC: ER 15:09
DX: R10.9 Unspecified abdominal pain (principal); I11.0 Hypertensive heart disease with heart failure; I50.9 Heart failure, unspecified; J44.9 Chronic obstructive pulmonary disease, unspecified; E78.5 Hyperlipidemia, unspecified; F17.210 Nicotine dependence, cigarettes, uncomplicated; Z88.0 Allergy status to penicillin; Z59.00 Homelessness unspecified
CPT/HCPCS: 36415; 74176; 80053; 81001; 83690; 85025

== ENCOUNTER 2024-07-31 13:41 | Inpatient (IN) | payer OTHER, MEDICAID ==
[~2024-07-31] VITALS: Ht 172.7 cm; Wt 92.0 kg
[2024-07-31] MEDS: POTASSIUM EFFERVESENT TAB 25 MEQ PO ONE (02:30)
[2024-07-31] MEDS: SODIUM CHLORIDE 0.9% 1,000 ML IV ONE (02:31)
[~2024-07-31 13:41] MED LIST changes: +CARV-217 PO; -CARV25TA PO; -GLIP5TAB12 PO; +GLIP5TAB21 PO
--- NOTE | 2024-07-31 13:51 | ED.PDOC ---
GI ASSESSMENT HPI Comments HPI: This is a 69 year old female presents to the ED with chief complaint of abdominal pain. Patient reports that she has been experiencing diffuse abdominal pain with associated distention for the past 3 days, nausea/vomiting of food yesterday, and red colored diarrhea last night one episode only. Patient relays that she is currently only on Carvedilol and had a PCP appointment today, but could not make it. Patient denies any fever, chills, constipation, dysuria, hematuria, chest pain, SOB, or hematemesis. Initial Vitals BP: 156/86 HR: 81 RR: 22 O2: 96% Temp: 98.1F Past Medical History: HTN, HLD, DM, CHF, COPD, Abdominal Hernia Past Surgical History: Denies Social History: Denies ETOH, smoking, and drug use. Medications: Carvedilol. That is the only medicine she takes Allergies: FRIEDA inhibitors, NSAIDs, Penicillins HPI: Poor Historian. REVIEW OF SYSTEMS: CONSTITUTIONAL: Denies acute: fever, diaphoresis, chills, HEAD: Denies acute: headache, photophobia Eyes: Denies acute: Double vision, vision loss, eye pain, eye discharge. EARS: Denies acute: tinnitus, hearing loss, ear discharge, ear pain, THROAT: Denies acute: sore throat, swelling, difficulty swallowing , pain with s wallowing, change in voice. NECK: Denies acute: neck pain, neck swelling, stiff neck. HEART: Denies acute : chest pain, palpitations, LUNGS: Denies acute: SOB, wheezing, cough, hemoptysis ABDOMEN: Denies acute: diarrhea, melena , hematemesis, hematochezia SKIN: Denies acute: rash, redness, lesions, itchiness. EXTREMITIES: Denies acute: calf pain, numbness, tingling, weakness, denies pain in extremity. Denies acute: Low back pain. Neuro: Denies acute: focal neurological deficit, motor or sensory focal neurological deficit, tremors, seizure like activity, confusion, dizziness, change in mental status, loss of bowel or bladder function, cauda equina like symptoms. : Denies acute: dysuria, hematuria, flank pain, increase in urinary frequency. PSYCH: Denies acute: hallucination, suicidal ideation, homicidal ideation. FEMALE: Denies acute: abnormal vaginal bleeding, foul odor, unusual discharge. PHYSICAL EXAM: General: -----mild to moderate---acute distress, awake and alert. Head: normocephalic, atraumatic. Neck: supple, trachea is midline, no swelling. Throat: Normal phonation. Eyes:, no erythema, no purulent discharge, no proptosis, no icterus. Heart: regular rate, regular rhythm, no significant murmur appreciated. Lungs: no apparent respiratory distress, Able to speak in full sentences. No wheezing, no rhonchi, no crackles. No stridors Clear to auscultation bilaterally. Abdomen: Generalized tender to palpation, noted distention, soft, no guarding, no rebound, + bowel sounds. Neuro: Awake, Alert, oriented to name, self, situation, follows commands GCS=15. Speech is normal. Skin: no petechia, no purpura, no cyanosis, non-pale, not jaundice. Lower extremities: --3/4 b/l - Pitting edema no deformity, no focal swelling, no calf TTP. Makes eye contact. moves all four extremities. Face: no apparent facial droop. ED COURSE: Time Seen by MD: 13:47 Primary Care Provider: RAJIIES Reviewed Notes: Medications, Allergies Allergies: Coded Allergies: NSAIDs (Verified Allergy, Mild, 12/11/17) FRIEDA Inhibitors (Unverified Allergy, Unknown, 10/09/16) Penicillins (Verified Allergy, Unknown, 05/04/16) Home Meds Active Scripts Docusate Sodium (Docusate Sodium) 100 Mg Cap, 100 MG PO BID for 30 Days, #60 CAP 0 [facility] 08/[facility] Lactulose (Lactulose) 10 Gm/15 Ml Andreina, 10 GM PO DAILY for 30 Days, #30 ML 0 [facility] 08/05/24 Cholecalciferol (VITAMIN D3) 2,000 Unit Tab, 2000 UNIT OR DAILY for 30 Days, #30 TAB 0 [facility] 08/05/24 Cyanocobalamin (B12) 1,000 Mcg Cap, 1000 MCG PO DAILY for 30 Days, #30 CAP 0 Refills Prov:RENÉE HERRERA RESIDENT 08/05/24 Aspirin (ASPIRIN 81) 81 Mg Tab, 81 MG OR DAILY for 30 Days, #30 TAB 0 Refills Prov:RENÉE HERRERA RESIDENT 08/05/24 Oxycodone W/ Acetaminophen (Percocet 5/325MG) 1 Tab Tb, 1 TAB PO BID for 7 Days, #14 TAB Prov:DORIS PARHAM PAC 08/09/22 Potassium Chloride (Potassium Chloride ER) 10 Meq Tab, 10 MEQ PO DAILY, #30 MG Prov:SILVIA REYNOLDS MD 12/04/21 Atorvastatin Calcium (ATORVASTATIN CALCIUM) 20 Mg Tab, 20 MG PO HS, #30 TAB Prov:SILVIA REYNOLDS MD 12/04/21 Furosemide (Furosemide) 40 Mg Tab, 1 TAB PO DAILY, #30 TAB 5 Refills Prov:SILVIA REYNOLDS MD 12/04/21 Reported Medications Carvedilol (Carvedilol) 12.5 Mg Tab, 1 TAB PO BID, #180 TAB 1 Refill 08/05/24 Glipizide (Glipizide) 5 Mg Tab, 1 TAB PO DAILY, #60 TAB 3 Refills 05/05/16 Discontinued Scripts Ondansetron Odt 4MG Tab (ZOFRAN PO) 4 Mg Tb, 4 MG PO BID for 7 Days, #14 TAB ODT TAB-DISSOLVE IN MOUTH, THEN SWALLOW Prov:DAMARIS MCKINLEY MD 08/08/22 Levofloxacin Hemihydrate (LEVOFLOXACIN) 500 Mg Tab, 500 MG PO DAILY for 5 Days, #5 TAB Prov:SILVIA REYNOLDS MD 12/04/21 Ibuprofen (Ibuprofen) 800 Mg Tab, 800 MG PO Q12HR PRN for MILD PAIN, #4 MG Prov:SILVIA REYNOLDS MD 12/04/21 Information Source: Patient, Emergency Med Personnel Mode of Arrival: EMS Was a procedure done? Was a procedure done?: No GI differential Dx Differential Diagnosis: Other (DDX include Diverticulitis, colitis, gastroenteritis, acute abdomen, SBO, enteritis, constipation, volvulus, appendicitis, Gallbladder disease, choledocolithiasis, ascending cholangitis, pancreatitis, intraAbdominal mass/neoplasm, hepatitis, UTI, pylonephritis, kidney stone, aneurysm, dissection, Inflammatory bowel disease, gastroparesis, ischemic bowel, ovarian torsion, ovarian cyst/mass, tubo-ovarian abscess, ) X-Ray, Labs, Meds, VS Vital Signs Date Time Temp Pulse Resp B/P (MAP) Pulse Ox O2 Delivery O2 Flow Rate FiO2 08/01/24 01:06 78 20 96 Room Air* 0 21 08/01/24 01:04 98.2 78 18 130/87 (101) 96 98.2 07/31/24 18:06 163/89 07/31/24 15:26 78 18 97 Room Air 07/31/24 15:26 98.3 78 17 168/79 (108) 97 98.3 07/31/24 13:51 98.1 81 22 156/81 (106) 96 98.1 07/31/24 13:51 78 Lab Test 07/31/24 17:45 07/31/24 15:44 07/31/24 14:31 07/31/24 14:00 Range/Units Troponin I High Sensitivity 12 13 13 </=34 ng/L White Blood Count 3.5 L 4.4-10.8 10^3/uL Red Blood Count 4.39 4.0-5.20 10^6/uL Hemoglobin 13.4 12.2-16.2 g/dL Hematocrit 39.7 36.0-46.0 % Mean Corpuscular Volume 90.4 80.0-100.0 fL Mean Corpuscular Hemoglobin 30.6 28.0-32.0 pg Mean Corpuscular Hemoglobin Concent 33.8 32.0-36.0 g/dL Red Cell Distribution Width 15.4 H 11.8-14.3 % Platelet Count 111 L 140-450 10^3/uL Mean Platelet Volume 9.0 6.9-10.8 fL Neutrophils (%) (Auto) 64.5 37.0-80.0 % Lymphocytes (%) (Auto) 25.2 10.0-50.0 % Monocytes (%) (Auto) 6.8 0.0-12.0 % Eosinophils (%) (Auto) 2.7 0.0-7.0 % Basophils (%) (Auto) 0.8 0.0-2.0 % Neutrophils # (Auto) 2.3 1.6-8.6 10 ^3/uL Lymphocytes # (Auto) 0.9 0.4-5.4 10 ^3/uL Monocytes # (Auto) 0.2 0-1.3 10 ^3/uL Eosinophils # (Auto) 0.1 0-0.8 10 ^3/uL Basophils # (Auto) 0 0-0.2 10 ^3/uL Nucleated Red Blood Cells 0.1 % Sodium Level 144 136-145 mmol/L Potassium Level 3.4 L 3.5-5.1 mmol/L Chloride Level 109 H 98-107 mmol/L Carbon Dioxide Level 28 20-31 mmol/L Anion Gap 7 5-15 Blood Urea Nitrogen 6 L 9-23 mg/dL Creatinine 0.71 0.550-1.02 mg/dL Glomerular Filtration Rate Calc 92 >90 mL/min BUN/Creatinine Ratio 8.5 L 10.0-20.0 Serum Glucose 78 74-106 mg/dL Lactic Acid Level 0.9 0.4-2.0 mmol/L Calcium Level 8.7 8.7-10.4 mg/dL Total Bilirubin 1.8 H 0.2-1.0 mg/dL Aspartate Amino Transferase (AST) 13 0-34 U/L Alanine Aminotransferase (ALT) < 9 7-40 U/L Alkaline Phosphatase 93 46-116 U/L B-Type Natriuretic Peptide 508.66 0-100 pg/mL Total Protein 5.7 5.7-8.2 g/dL Albumin 3.5 3.2-4.8 g/dL Lipase 31 12-53 U/L Urine Color Yellow Yellow Urine Clarity Turbid H Clear Urine pH 6.0 5.0-9.0 Urine Specific [place] 1.014 1.001-1.035 Urine Protein Negative Negative Urine Ketones Negative Negative Urine Blood Negative Negative /uL Urine Nitrite Negative Negative Urine Bilirubin Negative Negative Urine Urobilinogen 2 H Negative mg/dL Urine Leukocyte Esterase Negative Negative /uL Urine RBC 3 0 - 4 /hpf Urine Microscopic WBC 6 H 0-5 /HPF Urine Squamous Epithelial Cells Few <5 /hpf Urine Bacteria Few H None Seen /hpf Urine Mucus Few None Seen Urine Glucose Normal Normal mg/dL Stool Occult Blood Negative Negative Stool Occult Blood Sample #3 Negative Microbiology Date/Time Source Procedure Growth Status 07/31/24 14:48 Blood Blood Culture - Final NO GROWTH AFTER 5 DAYS OF INCUBATION. Complete 07/31/24 14:30 Blood Blood Culture - Final NO GROWTH AFTER 5 DAYS OF INCUBATION. Complete [facility] [id number] [facility] [address] Ph: [phone] DIAGNOSTIC IMAGING Diagnostic Imaging Report : [id number] Signed PATIENT: FARSHAD LYNNE ACCT: [id number] UNIT: [id number] : 1955 LOC: ER ROOM / BED: / AGE / SEX: 69 / F ADM STATUS: REG ER SERVICE 1353 ORDERING PHYSICIAN: RAFAEL PADRON DO PROCEDURE(s): ABPL - CT AB PEL WO CON-NO ORAL OR IV REASON: abd pain, distention, nausea and vomiting, HO hernia ORDER NUMBER(s): [id number], ACCESSION NUMBER(s): [id number] Exam: CT CT AB PEL WO CON-NO ORAL OR IV History: abd pain, distention, nausea and vomiting, HO hernia Comparison Study: CT CT AB PEL WO CON-NO ORAL OR IV on DOS: 02/05/23, CT [facility]ST AB PEL WO CON-NO IV/ORAL on DOS: 08/07/22, [facility] on DOS: 12/04/21 TECHNIQUE: Multidetector CT of the abdomen was performed from lung bases to pubic symphysis. Imaging was performed without IV contrast. Axial, coronal and sagittal multiplanar reformats were obtained from the axial data set by the technologist. Radiation Dose Information: CT Dose: CTDI volume is 25.32 mGy. Dose-length product is 1152.24 mGy*cm FINDINGS: Evaluation of solid organs is limited due to lack of intravenous contrast use. Findings: Lung Bases: No acute or significant lung base finding. Normal heart size. No pleural or pericardial effusion. Liver: The liver is normal in size. No focal lesions. Small amount of ascites around the liver. Gallbladder and Biliary Tree: Unremarkable Spleen: Splenomegaly measuring 14.6 cm long. Pancreas: The pancreas is grossly normal in appearance. Adrenal Glands: Unremarkable Kidneys: Kidneys are grossly normal without calculi or hydronephrosis. Bladder: Grossly unremarkable for degree of distention. Bowel: The stomach is grossly normal in appearance. Small bowel and colon are normal in caliber and distribution. The appendix is not visualized; however, no secondary findings of acute appendicitis identified. Ascites: Absent Lymphadenopathy: No mesenteric, retroperitoneal or periportal lymphadenopathy. Abdominal Wall and Mesentery: Unremarkable. Vasculature: The visualized abdominal aorta is normal in size and caliber. Evaluation of abdominal and pelvic vessels is limited due to lack of intravenous contrast. Pelvic Organs: Musculoskeletal: No aggressive focal bony lesions, acute fractures or dislocation. Mild compression of L4-L3 L2-L1 T12. On previous study there was mild compression of L3 L1 T12. Soft tissues: Unremarkable IMPRESSION: 1. Interval compression of L4. Old compression of T12-L1 L2-L3. 2. Findings of bowel obstruction 3. No calcified gallstones splenomegaly with the spleen measuring 14.6 cm long. On previous study 2022, spleen measured 15 cm long. Radiation optimization: All CT scans at this facility use at least one of these dose optimization techniques: automated exposure control mA and/or kV adjustment per patient size (includes targeted exams where dose is matched to clinical indication) or iterative reconstruction. ATED BY: EULA MOONEY Jr., DO DICTATED DATE/TIME: 07/31/24 1447 SIGNED BY: EULA MOONEY Jr., SIGNED DATE/TIME: 07/31/24 1447 CC: Time of 1ST Reevaluation: 14:48 Reevaluation 1ST: Unchanged Time of 2ND Reevaluation: 16:22 (The case was discussed with the general surgery on-call team (HPI, physical exam, labs and diagnostic tests that were available at the time of disposition, ED course, treatment plan) on the phone. They agreed to follow up with the patient in consult. Dr. Garzon said he is on his way. He recommended NG tube and NPO. ) Time of 3RD Reevaluation: 16:55 (General surgeon came and evaluated the patient at bedside. He was able to reduce an abdominal hernia. He recommends an abdominal binder which we ordered. He will follow in consult.) Patient Education/Counseling: Diagnosis, Treatment Family Education/Counseling: No Family Present Comments Patient presented with the above HPI.-abdominal pain-----workup was initiated. patient was found with the above mentioned diagnosis. the following medications were ordered: please refer to order lists of meds and tests obtained by myself Dr. Padron. Patient ED course and VS have been stabilized. Patient has been reassessed in the ED and remained in a stable condition. Pertinent incidental findings were discussed with the patient and/or family. Patient/family voices understanding and is agreeable with plan. Patient has been observed in the ED adequate length of time to insure improvement/stability. Escalation of care considered: Consideration of escalation to observation or admission General surgery was consulted. Patient was ADMITTED to the medicine team for further evaluation and treatment of their presentation. All the reports of any imaging studies that were ordered by myself were reviewed by myself. Departure 1 Departure Time of Disposition: 15:19 Impression: Primary Impression: SBO (small bowel obstruction) Additional Impressions: UTI (urinary tract infection) CHF exacerbation Disposition: ADMITTED INPATIENT Admit to: Tele Condition: Guarded e-Prescriptions Docusate Sodium (Docusate Sodium) 100 Mg Cap 100 MG PO BID for 30 Days, #60 CAP 0 [facility] 08/05/24 Lactulose (Lactulose) 10 Gm/15 Ml Andreina 10 GM PO DAILY for 30 Days, #30 ML 0 Refills Prov[facility] 08/05/24 Cholecalciferol (VITAMIN D3) 2,000 Unit Tab 2000 UNIT OR DAILY for 30 Days, #30 TAB 0 Refills Prov: [facility] 08/05/24 Cyanocobalamin (B12) 1,000 Mcg Cap 1000 MCG PO DAILY for 30 Days, #30 CAP 0 Refills Prov: [facility] 08/05/24 Aspirin (ASPIRIN 81) 81 Mg Tab 81 MG OR DAILY for 30 Days, #30 TAB 0 Refills Prov: [facility] 08/05/24 Discharged With: Self Critical Care Note Critical Care Time?: Yes (45 min-critical care time only) I personally scribed for RAFAEL PADRON DO ([email or web address]) on 07/31/24 at 13:51. Electronically submitted by Panfilo Lamb ([email or web address]). I personally scribed for RAFAEL PADRON DO ([email or web address]) on 07/31/24 at 14:52. Electronically submitted by Panfilo Lamb ([email or web address]). RAFAEL PADRON DO Jul 31, 2024 13:51
[2024-07-31 14:31] LABS: Urine Bacteria FEW /hpf (None Seen); Urine Blood Negative /uL (Negative); Urine Clarity Turbid (Clear); Urine Color Yellow (Yellow); Urine Mucus FEW (None Seen); Urine Protein, UAD Negative (Negative); Urine Specific Gravity 1.014 (1.001-1.035); Urine Squamous Epithelial Cell FEW /hpf (<5); Urine Urobilinogen 2 mg/dL (Negative); Urine WBC 6 /HPF (0-5)
--- NOTE | 2024-07-31 14:41 | DVH ---
CHEST RADIOGRAPH Indication: abd pain, distention, nausea and vomiting, HO hernia Technique: Single frontal view of the chest was obtained Comparison: XY CHEST PORTABLE on DOS: 08/08/22, EKG on DOS: 12/02/21, CXRP on DOS: 12/02/21 FINDINGS: Lines and Tubes: None Lungs: No focal consolidation. Mild interstitial prominence. Mild hyperinflation of the lungs. Pleura: No effusion. No pneumothorax. Cardiomediastinal contours: Heart size is within normal limits with [id number] atherosclerotic calcification and uncoiling of the aorta. Bones: No acute osseous abnormality. IMPRESSION: Mild pulmonary vascular congestion.
--- NOTE | 2024-07-31 14:49 | DVH ---
Exam: CT CT AB PEL WO CON-NO ORAL OR IV History: abd pain, distention, nausea and vomiting, HO hernia Comparison Study: CT CT AB PEL WO CON-NO ORAL OR IV on DOS: 02/05/23, CT CHST AB PEL WO CON-NO IV/ORA L on DOS: 08/07/22, [facility] on DOS: 12/04/21 TECHNIQUE: Multidetector CT of the abdomen was performed from lung bases to pubic symphysis. Imaging was performed without IV contrast. Axial, coronal and sagittal multiplanar reformats were obtained fr om the axial data set by the technologist. Radiation Dose Information: CT Dose: CTDI volume is 25.32 mGy. Dose-length product is 1152.24 mGy*cm FINDINGS: Evaluation of solid organs is limited due to lack of intravenous contrast use. Findings: Lung Bases: No acute or significant lung base finding. Normal heart size. No pleural or pericardial effusion. Liver: The liver is normal in size. No focal lesions. Small amount of ascites around the liver. Gallbladder and Biliary Tree: Unremarkable Spleen: Splenomegaly measuring 14.6 cm long. Pancreas: The pancreas is grossly normal in appearance. Adrenal Glands: Unremarkable Kidneys: Kidneys are grossly normal without calculi or hydronephrosis. Bladder: Grossly unremarkable for degree of distention. Bowel: The stomach is grossly normal in appearance. Small bowel and colon are normal in caliber and d istribution. The appendix is not visualized; however, no secondary findings of acute appendicitis id entified. Ascites: Absent Lymphadenopathy: No mesenteric, retroperitoneal or periportal lymphadenopathy. Abdominal Wall and Mesentery: Unremarkable. Vasculature: The visualized abdominal aorta is normal in size and caliber. Evaluation of abdominal a nd pelvic vessels is limited due to lack of intravenous contrast. Pelvic Organs: Musculoskeletal: No aggressive focal bony lesions, acute fractures or dislocation. Mild compression o f L4-L3 L2-L1 T12. On previous study there was mild compression of L3 L1 T12. Soft tissues: Unremarkable IMPRESSION: 1. Interval compression of L4. Old compression of T12-L1 L2-L3. 2. Findings of bowel obstruction 3. No calcified gallstones splenomegaly with the spleen measuring 14.6 cm long. On previous study 23, spleen measured 15 cm long. Radiation optimization: All CT scans at this facility use at least one of these dose optimization te chniques: automated exposure control mA and/or kV adjustment per patient size (includes targeted exa ms where dose is matched to clinical indication) or iterative reconstruction.
[2024-07-31 14:55] LABS: Basophils # (auto) 0 10 ^3/uL (0-0.2); Basophils % (auto) 0.8 % (0.0-2.0); Eosinophils # (auto) 0.1 10 ^3/uL (0-0.8); Eosinophils % (auto) 2.7 % (0.0-7.0); Hematocrit 39.7 % (36.0-46.0); Hemoglobin 13.4 g/dL (12.2-16.2); Lymphocytes # (auto) 0.9 10 ^3/uL (0.4-5.4); Lymphocytes % (auto) 25.2 % (10.0-50.0); Mean Corpuscular Hemoglobin 30.6 pg (28.0-32.0); Mean Corpuscular Hgb Conc. 33.8 g/dL (32.0-36.0); Mean Corpuscular Volume 90.4 fL (80.0-100.0); Monocytes # (auto) 0.2 10 ^3/uL (0-1.3); Monocytes % (auto) 6.8 % (0.0-12.0); Neutrophils # (auto) 2.3 10 ^3/uL (1.6-8.6); Neutrophils % (auto) 64.5 % (37.0-80.0); Nucleated Red Blood Cells % 0.1 %; Platelet Count (auto) 111 10^3/uL (140-450); Red Blood Cells 4.39 10^6/uL (4.0-5.20); Red Cell Distribution Width 15.4 % (11.8-14.3); White Blood Cell 3.5 10^3/uL (4.4-10.8)
[2024-07-31 15:11] LABS: Anion Gap 7 (5-15); BUN/Creatinine Ratio 8.5 (10.0-20.0)
[2024-07-31 15:15] LABS: Alanine Aminotransferase < 9 U/L (7-40); Alkaline Phosphatase 93 U/L (46-116); Aspartate Aminotransferase 13 U/L (0-34); Bilirubin, Total 1.8 mg/dL (0.2-1.0); Blood Urea Nitrogen 6 mg/dL (9-23); Carbon Dioxide 28 mmol/L (20-31); Total Protein 5.7 g/dL (5.7-8.2)
[2024-07-31 15:21] LABS: Chloride 109 mmol/L (98-107); Potassium 3.4 mmol/L (3.5-5.1)
[2024-07-31 15:25] LABS: Albumin 3.5 g/dL (3.2-4.8); Calcium 8.7 mg/dL (8.7-10.4); Glucose 78 mg/dL (74-106); Sodium 144 mmol/L (136-145)
[2024-07-31 15:43] LABS: Lipase 31 U/L (12-53)
--- NOTE | 2024-07-31 16:57 | DVHINCON2 ---
Date of service: Jul 31, 2024 Family History: Alcoholism Cervical cancer G8 SISTER FH: brain aneurysm FH: kidney cancer Family history: Arthritis Family history: Diabetes mellitus G8 FATHER, Hypertension G8 MOTHER Allergies: Coded Allergies: NSAIDs (Verified Allergy, Mild, 12/11/17) FRIEDA Inhibitors (Unverified Allergy, Unknown, 10/09/16) Penicillins (Verified Allergy, Unknown, 05/04/16) Home Meds Active Scripts Oxycodone W/ Acetaminophen (Percocet 5/325MG) 1 Tab Tb, 1 TAB PO BID for 7 Days, #14 TAB Prov:DORIS PARHAM PAC 08/09/22 Ondansetron Odt 4MG Tab (ZOFRAN PO) 4 Mg Tb, 4 MG PO BID for 7 Days, #14 TAB ODT TAB-DISSOLVE IN MOUTH, THEN SWALLOW Prov:DAMARIS MCKINLEY MD 08/08/22 Potassium Chloride (Potassium Chloride ER) 10 Meq Tab, 10 MEQ PO DAILY, #30 MG Prov:SILVIA REYNOLDS MD 12/04/21 Levofloxacin Hemihydrate (LEVOFLOXACIN) 500 Mg Tab, 500 MG PO DAILY for 5 Days, #5 TAB Prov:SILVIA REYNOLDS MD 12/04/21 Atorvastatin Calcium (ATORVASTATIN CALCIUM) 20 Mg Tab, 20 MG PO HS, #30 TAB Prov:SILVIA REYNOLDS MD 12/04/21 Furosemide (Furosemide) 40 Mg Tab, 1 TAB PO DAILY, #30 TAB 5 Refills Prov:SILVIA REYNOLDS MD 12/04/21 Ibuprofen (Ibuprofen) 800 Mg Tab, 800 MG PO Q12HR PRN for MILD PAIN, #4 MG Prov:SILVIA REYNOLDS MD 12/04/21 Carvedilol (Coreg) 25 Mg Tab, 25 MG PO QHS, #60 TAB Prov:SILVIA REYNOLDS MD 12/04/21 Reported Medications Glipizide (Glipizide) 5 Mg Tab, 1 TAB PO DAILY, #60 TAB 3 Refills 05/05/16 Vital Signs Vital Signs Date Time Temp Pulse Resp B/P (MAP) Pulse Ox O2 Delivery O2 Flow Rate FiO2 07/31/24 15:26 78 18 97 Room Air 07/31/24 15:26 98.3 168/79 (108) 98.3 Labs/Diagnostic Data Labs Test 07/31/24 15:44 07/31/24 14:31 07/31/24 14:00 Range/Units Troponin I High Sensitivity 13 </=34 ng/L White Blood Count 3.5 L 4.4-10.8 10^3/uL Red Blood Count 4.39 4.0-5.20 10^6/uL Hemoglobin 13.4 12.2-16.2 g/dL Hematocrit 39.7 36.0-46.0 % Mean Corpuscular Volume 90.4 80.0-100.0 fL Mean Corpuscular Hemoglobin 30.6 28.0-32.0 pg Mean Corpuscular Hemoglobin Concent 33.8 32.0-36.0 g/dL Red Cell Distribution Width 15.4 H 11.8-14.3 % Platelet Count 111 L 140-450 10^3/uL Mean Platelet Volume 9.0 6.9-10.8 fL Neutrophils (%) (Auto) 64.5 37.0-80.0 % Lymphocytes (%) (Auto) 25.2 10.0-50.0 % Monocytes (%) (Auto) 6.8 0.0-12.0 % Eosinophils (%) (Auto) 2.7 0.0-7.0 % Basophils (%) (Auto) 0.8 0.0-2.0 % Neutrophils # (Auto) 2.3 1.6-8.6 10 ^3/uL Lymphocytes # (Auto) 0.9 0.4-5.4 10 ^3/uL Monocytes # (Auto) 0.2 0-1.3 10 ^3/uL Eosinophils # (Auto) 0.1 0-0.8 10 ^3/uL Basophils # (Auto) 0 0-0.2 10 ^3/uL Nucleated Red Blood Cells 0.1 % Sodium Level 144 136-145 mmol/L Potassium Level 3.4 L 3.5-5.1 mmol/L Chloride Level 109 H 98-107 mmol/L Carbon Dioxide Level 28 20-31 mmol/L Anion Gap 7 5-15 Blood Urea Nitrogen 6 L 9-23 mg/dL Creatinine 0.71 0.550-1.02 mg/dL Glomerular Filtration Rate Calc 92 >90 mL/min BUN/Creatinine Ratio 8.5 L 10.0-20.0 Serum Glucose 78 74-106 mg/dL Lactic Acid Level 0.9 0.4-2.0 mmol/L Calcium Level 8.7 8.7-10.4 mg/dL Total Bilirubin 1.8 H 0.2-1.0 mg/dL Aspartate Amino Transferase (AST) 13 0-34 U/L Alanine Aminotransferase (ALT) < 9 7-40 U/L Alkaline Phosphatase 93 46-116 U/L B-Type Natriuretic Peptide 508.66 0-100 pg/mL Total Protein 5.7 5.7-8.2 g/dL Albumin 3.5 3.2-4.8 g/dL Lipase 31 12-53 U/L Urine Color Yellow Yellow Urine Clarity Turbid H Clear Urine pH 6.0 5.0-9.0 Urine Specific [place] 1.014 1.001-1.035 Urine Protein Negative Negative Urine Ketones Negative Negative Urine Blood Negative Negative /uL Urine Nitrite Negative Negative Urine Bilirubin Negative Negative Urine Urobilinogen 2 H Negative mg/dL Urine Leukocyte Esterase Negative Negative /uL Urine RBC 3 0 - 4 /hpf Urine Microscopic WBC 6 H 0-5 /HPF Urine Squamous Epithelial Cells Few <5 /hpf Urine Bacteria Few H None Seen /hpf Urine Mucus Few None Seen Urine Glucose Normal Normal mg/dL Stool Occult Blood Negative Negative Stool Occult Blood Sample #3 Negative Assessment [id number] C/O ABD PAIN N/V + DIARRHEA AFEBRILE VSS ABD SOFT DISTENDED REDUCIBLE PERIUMBILICAL VENTRAL HERNIA R/O ENTEROCOLITIS R/O ILEUS CLOSE OBSERVATION KEEP NPO NG CONSIDER EMERGENT SURGERY BASED ON ONGOING EVAL Plan discussed with: Patient DANGELO BULL MD Jul 31, 2024 16:57
[2024-07-31] MEDS: levoFLOXacin 500MG 100 ML IV ONE (17:48)
[2024-07-31] MEDS: FUROSEMIDE 40 MG/4 ML VIAL IV ONE (18:06)
--- NOTE | 2024-07-31 20:33 | ECG ---
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
--- NOTE | 2024-07-31 20:44 | DVHINCON2 ---
DATE OF CONSULTATION: 07/31/2024 HISTORY OF PRESENT ILLNESS: This patient is referred to me from the emergency room. She is 69 years old, coming in with nausea, vomiting, diarrhea, abdominal pain, distention and there has been some bleeding, red-colored diarrhea last night, one episode only and no fever or chills. No chest pain. PAST MEDICAL HISTORY: Hypertension, diabetes, CHF and COPD. According to her, there has been some abdominal hernia. Details are not clear. PAST SURGICAL HISTORY: No abdominal surgery. PHYSICAL EXAMINATION: VITAL SIGNS: Afebrile. Stable signs. HEENT: No evidence of pallor, cyanosis or jaundice. NECK: Supple. Nontender with no thyromegaly or lymphadenopathy. CHEST AND LUNGS: Clear. HEART: Within normal limits. ABDOMEN: Soft. She does have a reducible periumbilical ventral hernia and does not have any acute abdomen. She is mildly tender. There is no rebound. Abdomen is soft and minimally distended. NEUROLOGIC: Not assessed. EXTREMITIES: Unremarkable. CLINICAL IMPRESSION: Enteritis, rule out ileus, rule out recurrent ventral hernia, may be recurrent incarceration, but right now is reducible. PLAN: Keep her closed observation. She is at high risk for surgery. The plan will be to keep her n.p.o. NG to low continuous suction, abdominal binder, closed observation, and consider emergent surgery based upon ongoing evaluation. MD RAHEEL Delvalle/CHARMAINE TID: [id number] RECEIPT: [id number] cc: Jayro Wyatt MD
[2024-07-31] MEDS ORDERED: SODIUM CHLORIDE 0.9% 1,000 ML IV ONE (23:15)
[2024-07-31] MEDS ORDERED: cefTRIAXone 1GM/50ML D5W 50 ML IV ONE (23:15)
[2024-07-31] MEDS ORDERED: hydrALAZINE HCL 20 MG/ML VL IV PRN (23:45)
[2024-07-31] MEDS ORDERED: METOCLOPRAMIDE HCL 5MG/ml INJ 2ml VIAL IV PRN (23:45)
[2024-08-01] VITALS (8 sets, daily range): BP systolic 123–147; BP diastolic 54–77; PULSE 67–78; RESP 16–20; TEMP 97.5–98.1; O2SAT 85–96
--- NOTE | 2024-08-01 00:11 | DVHHPRES ---
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 The patient presented to the ED with chief complaint of acute abdominal pain associated with diarrhea. The patient reported diffuse periumbilical pain that started three days ago and progressively got worse. The patient described the pain as cramping type of pain localized in the periumbilical area slightly diffuse with no specific pattern of radiation. The patient rates the pain as a 9/10 on the pain scale. The patient also reports one single isolated episode of vomiting two days ago. The patient reports that has not been eating anything in the past two days. Patient also reports that last bowel movement was today and it was soft/solid in consistency with no visible blood in the stools. Upon admission, CBC and CMP was grossly unremarkable except for mild hypokalemia and positive UA suggesting UTI. Initial CT scan of the abdomen showed old compression fracture at T12-L1, L2-L3 and findings of bowel obstruction. On my examination, abdomen was distended with mild to moderate tenderness to palpation at the periumbilical region where a reducible" small mass" is felt likely due to ventral hernia. We will place NG tube with low negative suction, we will order a KUB, start IV fluids, antibiotics. Surgery was consulted on the case and we will admit the patient for further assessment and management. Past medical history: Hypertension, CVA with right upper extremity weakness and loss of sensitivity Home medications: Atorvastatin 20 mg daily, carvedilol 25 mg daily, furosemide 40 mg daily, glipizide 5 mg daily, ondansetron 4 mg b.i.d., potassium 10 mEq p.o. daily Surgical history: Denies Social history: Denies alcohol consumption, drug consumption or smoking. 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 Past Surgical History: None Family History: None Smoke: No ALCOHOL: none Drugs: None Lives: with Family Domestic Violence: Neg Review of Systems Constitutional: No: Fever, Chills, Sweats, Weakness, Malaise, Other Eyes: No: Pain, Vision change, Conjunctivae inflammation, Eyelid inflammation, Other, Redness ENT: No: Ear pain, Ear discharge, Nose pain, Nose discharge, Nose congestion, Mouth pain, Mouth swelling, Throat pain, Throat swelling, Other Respiratory: No: Cough, Dry, Shortness of breath, SOB with excertion, Wheezing, Hemoptysis, Pleuritic Pain, Sputum, Wheezing, Other Cardiovascular: No: Chest Pain, Palpitations, Orthopnea, Paroxysmal Noc. Dyspnea, Edema, Lt Headedness, Other Gastrointestinal: Vomiting, Abdominal Pain, Diarrhea; No: Nausea, Constipation, Melena, Hematochezia, Other Genitourinary: No Dysuria, No Frequency, No Incontinence, No Hematuria, No Retention, No Other Musculoskeletal: No: other, neck pain, shoulder pain, arm pain, back pain, hand pain, leg pain, foot pain Skin: No: Rash, Lesions, Jaundice, Bruising, Other Neurological: No: Weakness, Numbness, Incoordination, Change in speech, Confusion, Seizures, Other Allergies: Coded Allergies: NSAIDs (Verified Allergy, Mild, 12/11/17) FRIEDA Inhibitors (Unverified Allergy, Unknown, 10/09/16) Penicillins (Verified Allergy, Unknown, 05/04/16) Medications Current Medications Medications Dose Ordered Sig/Ramiro Route Start Time Stop Time Status Last Admin Dose Admin Hydralazine HCl 10 mg Q6HPRN PRN IV 07/31/24 23:45 UNV Metoclopramide HCl 5 mg Q8HP PRN IV 07/31/24 23:45 UNV Exam Vital Signs Vital Signs Date Time Temp Pulse Resp B/P (MAP) Pulse Ox O2 Delivery O2 Flow Rate FiO2 07/31/24 18:06 163/89 07/31/24 15:26 78 18 97 Room Air 07/31/24 15:26 98.3 98.3 General Appearance: Alert, Oriented X3, Cooperative, mild distress HEENT: Atraumatic, PERRLA, EOMI Respiratory: Clear to auscultation, Normal air movement Cardiovascular: Regular rate, Normal S1, Normal S2, No murmurs Abdominal: Normal bowel sounds, Other (THERE IS ABDOMINAL DISTENTION AND SMALL ABDOMINAL MASS IN THE PERIUMBILICAL REGION WITH DEEP PALPATION WHICH COULD BE CONSISTENT WITH VENTRAL HERNIA BUT IS REDUCIBLE) Extremities: No clubbing, No cyanosis, No edema, Normal pulses, No tenderness/swelling Skin: No rashes, No breakdown, No significant lesion Neuro: Normal speech, Strength at 5/5 X4 ext, Normal tone, Sensation intact, Cranial nerves 3-12 NL, Reflexes 2+ Psych/Mental Status: Mental status NL, Mood NL Labs/Xrays Labs Test 07/31/24 17:45 07/31/24 14:31 07/31/24 14:00 Range/Units Troponin I High Sensitivity 12 </=34 ng/L White Blood Count 3.5 L 4.4-10.8 10^3/uL Red Blood Count 4.39 4.0-5.20 10^6/uL Hemoglobin 13.4 12.2-16.2 g/dL Hematocrit 39.7 36.0-46.0 % Mean Corpuscular Volume 90.4 80.0-100.0 fL Mean Corpuscular Hemoglobin 30.6 28.0-32.0 pg Mean Corpuscular Hemoglobin Concent 33.8 32.0-36.0 g/dL Red Cell Distribution Width 15.4 H 11.8-14.3 % Platelet Count 111 L 140-450 10^3/uL Mean Platelet Volume 9.0 6.9-10.8 fL Neutrophils (%) (Auto) 64.5 37.0-80.0 % Lymphocytes (%) (Auto) 25.2 10.0-50.0 % Monocytes (%) (Auto) 6.8 0.0-12.0 % Eosinophils (%) (Auto) 2.7 0.0-7.0 % Basophils (%) (Auto) 0.8 0.0-2.0 % Neutrophils # (Auto) 2.3 1.6-8.6 10 ^3/uL Lymphocytes # (Auto) 0.9 0.4-5.4 10 ^3/uL Monocytes # (Auto) 0.2 0-1.3 10 ^3/uL Eosinophils # (Auto) 0.1 0-0.8 10 ^3/uL Basophils # (Auto) 0 0-0.2 10 ^3/uL Nucleated Red Blood Cells 0.1 % Sodium Level 144 136-145 mmol/L Potassium Level 3.4 L 3.5-5.1 mmol/L Chloride Level 109 H 98-107 mmol/L Carbon Dioxide Level 28 20-31 mmol/L Anion Gap 7 5-15 Blood Urea Nitrogen 6 L 9-23 mg/dL Creatinine 0.71 0.550-1.02 mg/dL Glomerular Filtration Rate Calc 92 >90 mL/min BUN/Creatinine Ratio 8.5 L 10.0-20.0 Serum Glucose 78 74-106 mg/dL Lactic Acid Level 0.9 0.4-2.0 mmol/L Calcium Level 8.7 8.7-10.4 mg/dL Total Bilirubin 1.8 H 0.2-1.0 mg/dL Aspartate Amino Transferase (AST) 13 0-34 U/L Alanine Aminotransferase (ALT) < 9 7-40 U/L Alkaline Phosphatase 93 46-116 U/L B-Type Natriuretic Peptide 508.66 0-100 pg/mL Total Protein 5.7 5.7-8.2 g/dL Albumin 3.5 3.2-4.8 g/dL Lipase 31 12-53 U/L Urine Color Yellow Yellow Urine Clarity Turbid H Clear Urine pH 6.0 5.0-9.0 Urine Specific [place] 1.014 1.001-1.035 Urine Protein Negative Negative Urine Ketones Negative Negative Urine Blood Negative Negative /uL Urine Nitrite Negative Negative Urine Bilirubin Negative Negative Urine Urobilinogen 2 H Negative mg/dL Urine Leukocyte Esterase Negative Negative /uL Urine RBC 3 0 - 4 /hpf Urine Microscopic WBC 6 H 0-5 /HPF Urine Squamous Epithelial Cells Few <5 /hpf Urine Bacteria Few H None Seen /hpf Urine Mucus Few None Seen Urine Glucose Normal Normal mg/dL Stool Occult Blood Negative Negative Stool Occult Blood Sample #3 Negative Assessment/Plan Assessment/Plan Assessment/plan Acute abdominal pain, due to possible small bowel obstruction Possible partial/complete bowel obstruction Possible reducible ventral hernia Possible systolic/diastolic heart failure UTI Hypokalemia Old compression fractures T12-L1, L2-L3 Plan -CT scan of the abdomen showed compression of L4, all compression of T12-L1 and L2-L3. There was also possible findings of bowel obstruction and splenomegaly -place NG tube at low negative suction. ATTEMPTED 2 TIMES, PATIENT REFUSE NG PLACEMENT AT THIS TIME. -ordered KUB -start ciprofloxacin IV and metronidazole -replace potassium -IV fluids at 75cc/hr, consider holding due to poss CHF in the morning -Ordered Echocardiogram -Surgery on board -Reglan PRN for nausea Goals of care discussed with the patient at bedside for >35min, FULL CODE Plan discussed with Dr. Desai Plan discussed with: Patient My Orders Orders - CARLOS A PAUL RESIDENT Procedure Category Date Status Time Sodium Chloride 0.9% PHA 07/31/24 In Process 23:15 Kub Abdomen Single XY 07/31/24 Logged View 23:02 Place Ng ORDERS 07/31/24 Transmitted 23:02 Communication Order ORDERS 07/31/24 Transmitted 23:02 Sodium Chloride 0.9% PHA 07/31/24 In Process 23:15 Ciprofloxacin PHA 07/31/24 Logged 400mg/200ml (Cipro Iv) 23:45 Metronidazole PHA 07/31/24 Logged 500mg/100ml (Flagyl 23:45 Hydralazine Injection PHA 07/31/24 Logged (Apresoline Inject 23:45 Metoclopramide PHA 07/31/24 Logged Injection (Reglan 23:45 Date of Service: Jul 31, 2024 Billing Provider: CARLOS A PAUL RESIDENT Common Visit Codes: [id number] INP/OBS CARE (HIGH) Secondary Visit Codes: [id number] CARE PLAN 30 MINUTES CARLOS A PAUL RESIDENT Aug 01, 2024 00:11
[2024-08-01] MEDS: LIDOCAINE 2% TOPICAL JELLY 5 ML URJT TOP ONE (01:30)
[2024-08-01] MEDS: CIPROFLOXACIN 400MG/200ML 200 ML IV ONE ×2 (02:38→06:34)
--- NOTE | 2024-08-01 03:09 | DVH ---
Indication: R/O SMALL BOWEL OBSTRUCTION Technique: Single frontal view of the abdomen was obtained Comparison: CT 07/31/2024 IMPRESSION: Few mildly prominent loops of small bowel in the upper abdomen measure up to 3.3 cm. Mild gaseous di stention of colonic loops. Findings are nonspecific and may represent ileus versus early obstruction.
[2024-08-01] MEDS: metroNIDAZOLE 500MG/100ML 100 ML IV ONE (05:07)
[2024-08-01 07:49] LABS: Basophils # (auto) 0 10 ^3/uL (0-0.2); Basophils % (auto) 0.6 % (0.0-2.0); Eosinophils # (auto) 0.1 10 ^3/uL (0-0.8); Eosinophils % (auto) 3.4 % (0.0-7.0); Hematocrit 36.6 % (36.0-46.0); Hemoglobin 12.4 g/dL (12.2-16.2); Lymphocytes # (auto) 0.7 10 ^3/uL (0.4-5.4); Lymphocytes % (auto) 26.6 % (10.0-50.0); Mean Corpuscular Hemoglobin 30.4 pg (28.0-32.0); Mean Corpuscular Hgb Conc. 33.8 g/dL (32.0-36.0); Mean Corpuscular Volume 90.2 fL (80.0-100.0); Monocytes # (auto) 0.2 10 ^3/uL (0-1.3); Monocytes % (auto) 7.3 % (0.0-12.0); Neutrophils # (auto) 1.7 10 ^3/uL (1.6-8.6); Neutrophils % (auto) 62.1 % (37.0-80.0); Nucleated Red Blood Cells % 0.2 %; Platelet Count (auto) 106 10^3/uL (140-450); Red Blood Cells 4.06 10^6/uL (4.0-5.20); White Blood Cell 2.7 10^3/uL (4.4-10.8)
[2024-08-01 08:03] LABS: Potassium 3.6 mmol/L (3.5-5.1); Sodium 144 mmol/L (136-145)
[2024-08-01 08:04] LABS: Anion Gap 7 (5-15); Carbon Dioxide 29 mmol/L (20-31)
[2024-08-01 08:05] LABS: Calcium 8.8 mg/dL (8.7-10.4)
[2024-08-01 08:09] LABS: Chloride 108 mmol/L (98-107); Glucose 85 mg/dL (74-106); Triglycerides 70 mg/dL (< 150)
[2024-08-01 08:10] LABS: LDL Cholesterol 95 mg/dL (< 100)
[2024-08-01 08:12] LABS: Cholesterol 140 mg/dL (< 200)
[2024-08-01 08:22] LABS: HDL Cholesterol 34 mg/dL (40-59)
[2024-08-01 08:31] LABS: BUN/Creatinine Ratio 8.2 (10.0-20.0)
[2024-08-01 08:33] LABS: Blood Urea Nitrogen 6 mg/dL (9-23)
[2024-08-01 08:58] LABS: INR 1.11 (0.9-1.15); Partial Thromboplastin Time 27.6 SEC (24.5-34.5); Prothrombin Time 11.6 sec (9.3-11.8)
[2024-08-01] MEDS ORDERED: cefTRIAXone 1GM/50ML D5W 50 ML IV SCH (10:00)
--- NOTE | 2024-08-01 11:48 | DVHPN2 ---
Progress Note Date Seen: Aug 01, 2024 Medical Necessity Reason Pt with a Central, PICC or Fol: No Objective vital signs Vital Sign Date Time Temp Pulse Resp B/P (MAP) Pulse Ox O2 Delivery O2 Flow Rate FiO2 08/01/24 09:00 97.5 70 19 147/55 (85) 94 97.5 08/01/24 08:00 Room Air* 0 21 Total Intake and Output 07/31/24 07/31/24 08/01/24 15:00 23:00 07:00 Intake Total 100 ml Balance 100 ml medications Current Medications Medications Dose Ordered Sig/Ramiro Route Start Time Stop Time Status Last Admin Dose Admin Hydralazine HCl 10 mg Q6HPRN PRN IV 07/31/24 23:45 Metoclopramide HCl 5 mg Q8HP PRN IV 07/31/24 23:45 laboratory and microbiology Laboratory Tests 08/01/24 06:28 Test 08/01/24 06:28 Range/Units Serum Glucose 85 74-106 mg/dL Problem List/Assessment/Plan Problem List/Assessment/Plan AFEBRILE VSS ABD SOFT LESS TENDER BM + RESOLVING SBO/ILEUS ALLOW CLEAR LIQUIDS NURSE AT BEDSIDE Plan discussed with: Patient DANGELO BULL MD Aug 01, 2024 11:48
[2024-08-01] MEDS ORDERED: CYANOCOBALAMIN (B-12) 1000 MCG/1 ML VIAL IM ONE (12:30)
--- NOTE | 2024-08-01 16:01 | DVHPNRES ---
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 The patient presented to the ED with chief complaint of acute abdominal pain associated with diarrhea. The patient reported diffuse periumbilical pain that started three days ago and progressively got worse. The patient described the pain as cramping type of pain localized in the periumbilical area slightly diffuse with no specific pattern of radiation. The patient rates the pain as a 9/10 on the pain scale. The patient also reports one single isolated episode of vomiting two days ago. The patient reports that has not been eating anything in the past two days. Patient also reports that last bowel movement was today and it was soft/solid in consistency with no visible blood in the stools. Upon admission, CBC and CMP was grossly unremarkable except for mild hypokalemia and positive UA suggesting UTI. Initial CT scan of the abdomen showed old compression fracture at T12-L1, L2-L3 and findings of bowel obstruction. On my examination, abdomen was distended with mild to moderate tenderness to palpation at the periumbilical region where a reducible" small mass" is felt likely due to ventral hernia. We will place NG tube with low negative suction, we will order a KUB, start IV fluids, antibiotics. Surgery was consulted on the case and we will admit the patient for further assessment and management. Past medical history: Hypertension, CVA with right upper extremity weakness and loss of sensitivity Home medications: Atorvastatin 20 mg daily, carvedilol 25 mg daily, furosemide 40 mg daily, glipizide 5 mg daily, ondansetron 4 mg b.i.d., potassium 10 mEq p.o. daily Surgical history: Denies Social history: Denies alcohol consumption, drug consumption or smoking. Patient seen and examined at bedside. Has hyperactive bowel sounds. Refused NG tube placement. Objective vital signs Vital Sign Date Time Temp Pulse Resp B/P (MAP) Pulse Ox O2 Delivery O2 Flow Rate FiO2 08/01/24 12:33 97.8 73 19 123/54 (77) 94 97.8 08/01/24 08:00 Room Air* 0 21 Total Intake and Output 07/31/24 07/31/24 08/01/24 15:00 23:00 07:00 Intake Total 100 ml Balance 100 ml medications Current Medications Medications Dose Ordered Sig/Ramiro Route Start Time Stop Time Status Last Admin Dose Admin Hydralazine HCl 10 mg Q6HPRN PRN IV 07/31/24 23:45 Metoclopramide HCl 5 mg Q8HP PRN IV 07/31/24 23:45 Lactated Ringer's 1,000 ml @ 75 mls/hr [id number] IV 08/01/24 12:30 Examination Patient lying in bed, in no acute distress General: Afebrile,, mucosae are moist Cardiovascular: Regular S1 and S2. No murmurs, gallops or rubs. No JVD elevation. No pedal edema Respiratory: Normal B/L air entry on room air. Clear lung sounds on auscultation Abdomen: Soft, nontender, distended, hyperactive bowel sounds, no rebound tenderness, no organomegaly, no masses. Possible periumbilical soft tissue mass mass likely reducible ventral hernia Genitourinary: Deferred MSK/skin: Mobilizes 4 limbs. Skin is dry and warm Neurological: No motor, no sensitive deficits, normal speech. Pupils are isocoric and reactive. Psych/Mental Status: A/Ox3 laboratory and microbiology Laboratory Tests 08/01/24 06:28 Test 08/01/24 06:28 Range/Units Serum Glucose 85 74-106 mg/dL Microbiology Date/Time Source Procedure Growth Status 07/31/24 14:48 Blood Blood Culture - Preliminary NO GROWTH AFTER 24 HOURS OF INCUBATION. Resulted Labs and/or images reviewed: Labs reviewed by me, Image(s) reviewed by me Problem List/Assessment/Plan Problem List/Assessment/Plan Acute abdominal pain due to possible SBO versus ileus SBO versus ileus Likely reducible ventral hernia Intractable nausea and vomiting -CT scan of the abdomen showed compression of L4, all compression of T12-L1 and L2-L3. There was also possible findings of bowel obstruction and splenomegaly -place NG tube at low negative suction. ATTEMPTED 2 TIMES, PATIENT REFUSE NG PLACEMENT AT THIS TIME. -ordered KUB showed Few mildly prominent loops of small bowel in the upper abdomen measure up to 3.3 cm. Mild gaseous distention of colonic loops. -replace potassium -IV LR at 75cc/hr -surgical consultation-allowed clear liquid diet -p.r.n. Reglan -patient refused NG tube placement -prelim blood culture negative -follow up with gastric emptying study Likely diastolic heart failure -ordered echocardiogram -BNP 508 Ruled out Acute cystitis DC antibiotics Hypokalemia -supplemented Vitamin B12 deficiency -supplemented Old compression fracture at T12-L1, L2-L3 -monitor Nicotine dependence -patient leaving AMA to smoke Counseled regarding cessation for more than 20 minutes Plan discussed with patient in which all questions have been answered Goals of care discussed for more than 28 minute, full code status Case discussed with Dr. Gracia Plan discussed with: Patient My Orders My Orders Orders - RENÉE HERRERA Procedure Category Date Status Time Gastric Empting Study NM 08/01/24 Logged 07:24 Lactated Ringer's PHA 08/01/24 In Process 12:30 Date of Service: Aug 01, 2024 Billing Provider: KEEGAN GRACIA MD Common Visit Codes: [id number] INP/OBS CARE(HIGH) Secondary Visit Codes: [id number] CARE PLAN 30 MINUTES RENÉE HERRERA Aug 01, 2024 16:01 KEEGAN GRACIA MD Aug 02, 2024 22:06
--- NOTE | 2024-08-01 16:36 | DVH ---
Procedure: NM GASTRIC EMPTING STUDY Exam Date: 08/01/2024 01:31 PM Reason for study/Clinical History: gastroparesis obstruction , Diabetic Comparison Study: None Nuclear Medicine Solid Gastric Emptying Study Technique: The patient received an oral administration of 1 mCi of technetium 99m sulfur colloid lab eled to scrambled eggs as a part of the standardized meal. Quantitative data was obtained from these images and the geometric mean for percent gastric retention was determined at multiple time points. Findings: Percent gastric retention is as follows: One hour 5 % retained, (normal greater than or equal to 70%) Two hour 3 % retained, (normal less than or equal to 60%) Normal passage of radiopharmaceutical is shown into the small intestine. Impression: Increased rate of gastric emptying at 60 minutes and 90 minutes. *Source: Journal of Nuclear Medicine Technology. Vol.36. No.1. April 2007
[2024-08-01] MEDS: CYANOCOBALAMIN (B-12) 1000 MCG/1 ML VIAL IM ONE (16:56)
[2024-08-01] MEDS: LACTATED RINGER'S 1,000 ML IV SCH (16:57)
[2024-08-01] MEDS: ACETAMINOPHEN 325 MG TAB PO ONE (23:12)
[2024-08-02] VITALS (7 sets, daily range): BP systolic 106–168; BP diastolic 49–86; PULSE 57–81; RESP 16–19; TEMP 96.5–98.1; O2SAT 92–100
[2024-08-02 01:31] LABS: Amphetamine Screen, Urine Neg (NEGATIVE); Barbiturate Scree,Urine Neg (NEGATIVE); Benzodiazephine Screen, Urine Neg (NEGATIVE); Cannabinoid Screen, Urine Neg (NEGATIVE); Cocaine Screen, Urine Pos (NEGATIVE); Opiate Scree,Urine Neg (NEGATIVE); Phencyclidine Screen, Urine Neg (NEGATIVE)
[2024-08-02 05:55] LABS: Hematocrit 36.5 % (36.0-46.0); Hemoglobin 12.4 g/dL (12.2-16.2); Mean Corpuscular Hgb Conc. 34.1 g/dL (32.0-36.0); Mean Corpuscular Volume 90.9 fL (80.0-100.0); Platelet Count (auto) 135 10^3/uL (140-450); Red Blood Cells 4.02 10^6/uL (4.0-5.20); Red Cell Distribution Width 15.1 % (11.8-14.3); White Blood Cell 3.2 10^3/uL (4.4-10.8)
[2024-08-02 05:57] LABS: Band Neutrophils % (manual) 0; Basophils % (manual) 0 (0.0-2.0); Blast Cells 0; Metamyelocytes % 0; Myelocytes % 0; Promyelocytes % 0; Reactive Lymphocytes 0
[2024-08-02 06:01] LABS: Sodium 144 mmol/L (136-145)
[2024-08-02 06:02] LABS: Anion Gap 8 (5-15); Carbon Dioxide 26 mmol/L (20-31)
[2024-08-02 06:03] LABS: Calcium 8.6 mg/dL (8.7-10.4); Chloride 110 mmol/L (98-107); Potassium 3.4 mmol/L (3.5-5.1)
[2024-08-02 06:07] LABS: BUN/Creatinine Ratio 7.9 (10.0-20.0); Glucose 84 mg/dL (74-106)
[2024-08-02 06:08] LABS: Blood Urea Nitrogen 6 mg/dL (9-23)
[2024-08-02] MEDS: hydrALAZINE HCL 25 MG TAB PO ONE (06:35)
[2024-08-02 06:51] LABS: Eosinophils % (manual) 3 (0-7); Lymphocytes % (manual) 42 (10.0-50.0); Monocytes % (manual) 5 (0-12); Platelet Estimate Decreased
--- NOTE | 2024-08-02 15:23 | DVHPNRES ---
Progress Note Date Seen: Aug 02, 2024 Resident Creating Document: ORLANDO CABRERA RESIDENT Medical Necessity Reason Pt with a Central, PICC or Fol: No Subjective Review of Systems Patient seen and examined at bedside, patient is feeling better, patient has bowel movement this morning, advanced to full liquid diet. Objective vital signs Vital Sign Date Time Temp Pulse Resp B/P (MAP) Pulse Ox O2 Delivery O2 Flow Rate FiO2 08/02/24 11:48 98.0 76 18 106/49 (68) 93 98.0 08/02/24 08:00 Room Air* 0 21 Total Intake and Output 08/01/24 08/01/24 08/02/24 15:00 23:00 07:00 Intake Total 480 ml 600 ml Output Total 50 ml Balance 480 ml 550 ml medications Current Medications Medications Dose Ordered Sig/Ramiro Route Start Time Stop Time Status Last Admin Dose Admin Hydralazine HCl 10 mg Q6HPRN PRN IV 07/31/24 23:45 Metoclopramide HCl 5 mg Q8HP PRN IV 07/31/24 23:45 Lactated Ringer's 1,000 ml @ 75 mls/hr [id number] IV 08/01/24 12:30 08/01/24 16:57 75 MLS/HR Examination: GENERAL:Normal, HEENT:Normal, NECK:Normal, LUNGS:Normal, CVS:Normal, ABDOMEN:Abnormal (distended, hyperactive bowel sounds, ), MSK:Normal, SKIN:Normal, NEURO:Normal laboratory and microbiology Laboratory Tests 08/02/24 05:34 Test 08/02/24 05:34 Range/Units Serum Glucose 84 74-106 mg/dL Microbiology Date/Time Source Procedure Growth Status 07/31/24 14:48 Blood Blood Culture - Preliminary NO GROWTH AFTER 48 HOURS OF INCUBATION. Resulted Problem List/Assessment/Plan Problem List/Assessment/Plan Acute abdominal pain due to possible SBO versus ileus SBO versus ileus Likely reducible ventral hernia Intractable nausea and vomiting -CT scan of the abdomen showed compression of L4, all compression of T12-L1 and L2-L3. There was also possible findings of bowel obstruction and splenomegaly -place NG tube at low negative suction. ATTEMPTED 2 TIMES, PATIENT REFUSE NG PLACEMENT AT THIS TIME. - KUB showed Few mildly prominent loops of small bowel in the upper abdomen measure up to 3.3 cm. Mild gaseous distention of colonic loops. -replace potassium -surgical consultation-advanced full liquid diet -p.r.n. Reglan -patient refused NG tube placement -prelim blood culture negative -follow up with gastric emptying study Likely diastolic heart failure -ordered echocardiogram -BNP 508 Ruled out Acute cystitis DC antibiotics Hypokalemia -supplemented Vitamin B12 deficiency -supplemented Old compression fracture at T12-L1, L2-L3 -monitor Nicotine dependence -patient leaving AMA to smoke Counseled regarding cessation for more than 20 minutes Plan discussed with patient in which all questions have been answered Goals of care discussed for more than 28 minute, full code status Case discussed with Dr. Gracia Plan discussed with: Patient Date of Service: Aug 02, 2024 Billing Provider: KEEGAN GRACIA MD Common Visit Codes: [id number] INP/OBS CARE(HIGH) ORLANDO CABRERA RESIDENT Aug 02, 2024 15:23 KEEGAN GRACIA MD Aug 02, 2024 22:07
--- NOTE | 2024-08-02 16:05 | DVHSR ---
APPROVED REPORT EXAM: Two-dimensional and M-mode echocardiogram with Doppler and color Doppler. Blood Pressure: 146/64 mmHg INDICATION Possible CHF exacerbation? Eval LVEF RISK FACTORS Height: 68, Weight: 189 DIMENSIONS LVDd (3.8-5.7cm)LA (2D)5.1 (1.9-4.0cm)Aortic Root (2.0-3.7cm) EF (%) 57.0 (55-70%)Rt. Atrium4.5 (1.9-4.0cm)Asc. Aorta cm Mitral Valve MitralMitral Stenosis E wave0.84m/sMV Mean GR.mmHg A wave1.02m/sMV Peak GR.59mmHg E/A ratio0.82D MVAcm2 DECEL [id number] 1/2 Tmkh32la IVRTmsDop MVA3.00cm2 Aortic Valve Aortic ValveAortic Stenosis V10.97m/Benoit Mean GR.7mmHg V21.84m/Benoit Peak GR.14mmHg Tricuspid Valve TR Velocity2.95m/s [id number] Other Information Technically limited study due to body habitus. Conclusion Sinus rhytm Off axis views Biatrial enlargement. Sigmoid Septum Mild MAC, Mild aortic sclerosis EF are normal with normal RV function. No masses or vegetations.
--- NOTE | 2024-08-02 23:42 | DVHPN2 ---
Progress Note Date Seen: Aug 02, 2024 Medical Necessity Reason Pt with a Central, PICC or Fol: No Objective vital signs Vital Sign Date Time Temp Pulse Resp B/P (MAP) Pulse Ox O2 Delivery O2 Flow Rate FiO2 08/02/24 16:13 97.1 81 17 148/74 (98) 95 97.1 08/02/24 08:00 Room Air* 0 21 Total Intake and Output 08/01/24 08/01/24 08/02/24 15:00 23:00 07:00 Intake Total 480 ml 600 ml Output Total 50 ml Balance 480 ml 550 ml medications Current Medications Medications Dose Ordered Sig/Ramiro Route Start Time Stop Time Status Last Admin Dose Admin Hydralazine HCl 10 mg Q6HPRN PRN IV 07/31/24 23:45 Metoclopramide HCl 5 mg Q8HP PRN IV 07/31/24 23:45 Lactated Ringer's 1,000 ml @ 75 mls/hr [id number] IV 08/01/24 12:30 08/01/24 16:57 75 MLS/HR laboratory and microbiology Laboratory Tests 08/02/24 05:34 Test 08/02/24 05:34 Range/Units Serum Glucose 84 74-106 mg/dL Microbiology Date/Time Source Procedure Growth Status 07/31/24 14:48 Blood Blood Culture - Preliminary NO GROWTH AFTER 48 HOURS OF INCUBATION. Resulted Problem List/Assessment/Plan Problem List/Assessment/Plan AFEBRILE VSS ABD SOFT LESS TENDER BM + RESOLVING SBO/ILEUS ALLOW FULL LIQUIDS AND ADVANCE JAYA NURSE AT BEDSIDE Plan discussed with: Patient My Orders My Orders Orders - DANGELO BULL MD Procedure Category Date Status Time Full Liq Diet DIET 08/02/24 Transmitted Lunch Communication Order ORDERS 08/02/24 Transmitted 12:14 DANGELO BULL MD Aug 02, 2024 23:42
[2024-08-03] VITALS (9 sets, daily range): BP systolic 113–154; BP diastolic 49–74; PULSE 57–83; RESP 16–20; TEMP 97.2–98.4; O2SAT 91–96
[2024-08-03] MEDS ORDERED: DEXTROSE (50%) 50ML SYRG IV PRN (07:30)
[2024-08-03] MEDS: CYANOCOBALAMIN 500 MCG TAB PO SCH (10:08)
[2024-08-03] MEDS: ERGOCALCIFEROL 50,000 UNIT(1.25MG) CAP PO SCH (10:08)
[2024-08-03] MEDS: CARVEDILOL 12.5 MG TAB PO SCH (10:09)
[2024-08-03 10:35] LABS: Basophils # (auto) 0 10 ^3/uL (0-0.2); Basophils % (auto) 1.1 % (0.0-2.0); Eosinophils # (auto) 0.1 10 ^3/uL (0-0.8); Eosinophils % (auto) 2.2 % (0.0-7.0); Hematocrit 38.5 % (36.0-46.0); Hemoglobin 12.8 g/dL (12.2-16.2); Lymphocytes % (auto) 27.7 % (10.0-50.0); Mean Corpuscular Hemoglobin 30.1 pg (28.0-32.0); Mean Corpuscular Hgb Conc. 33.2 g/dL (32.0-36.0); Mean Corpuscular Volume 90.8 fL (80.0-100.0); Monocytes # (auto) 0.3 10 ^3/uL (0-1.3); Monocytes % (auto) 7.3 % (0.0-12.0); Neutrophils # (auto) 2.2 10 ^3/uL (1.6-8.6); Neutrophils % (auto) 61.7 % (37.0-80.0); Nucleated Red Blood Cells % 0.1 %; Platelet Count (auto) 119 10^3/uL (140-450); Red Blood Cells 4.24 10^6/uL (4.0-5.20); Red Cell Distribution Width 15.2 % (11.8-14.3); White Blood Cell 3.5 10^3/uL (4.4-10.8)
[2024-08-03 10:44] LABS: Potassium 3.5 mmol/L (3.5-5.1)
[2024-08-03 10:45] LABS: Anion Gap 7 (5-15); Carbon Dioxide 26 mmol/L (20-31)
[2024-08-03 10:50] LABS: BUN/Creatinine Ratio 9.9 (10.0-20.0); Glucose 100 mg/dL (74-106)
[2024-08-03 10:52] LABS: Blood Urea Nitrogen 8 mg/dL (9-23); Chloride 112 mmol/L (98-107); Sodium 145 mmol/L (136-145)
[2024-08-03] MEDS: ALBUTEROL SULF 2.5 MG/0.5ML(0.5%) NEB SOLN NEB SCH (11:30)
[2024-08-03] MEDS: ACCU-CHEK COMFORT CURVE STRIP VI SCH (11:30)
[2024-08-03] MEDS: InsuLIN REG 1unit/0.01ml Soln (100units/ml) SC SCH (11:30)
--- NOTE | 2024-08-03 14:50 | DVHPNRES ---
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 The patient presented to the ED with chief complaint of acute abdominal pain associated with diarrhea. The patient reported diffuse periumbilical pain that started three days ago and progressively got worse. The patient described the pain as cramping type of pain localized in the periumbilical area slightly diffuse with no specific pattern of radiation. The patient rates the pain as a 9/10 on the pain scale. The patient also reports one single isolated episode of vomiting two days ago. The patient reports that has not been eating anything in the past two days. Patient also reports that last bowel movement was today and it was soft/solid in consistency with no visible blood in the stools. Upon admission, CBC and CMP was grossly unremarkable except for mild hypokalemia and positive UA suggesting UTI. Initial CT scan of the abdomen showed old compression fracture at T12-L1, L2-L3 and findings of bowel obstruction. On my examination, abdomen was distended with mild to moderate tenderness to palpation at the periumbilical region where a reducible" small mass" is felt likely due to ventral hernia. We will place NG tube with low negative suction, we will order a KUB, start IV fluids, antibiotics. Surgery was consulted on the case and we will admit the patient for further assessment and management. Past medical history: Hypertension, CVA with right upper extremity weakness and loss of sensitivity Home medications: Atorvastatin 20 mg daily, carvedilol 25 mg daily, furosemide 40 mg daily, glipizide 5 mg daily, ondansetron 4 mg b.i.d., potassium 10 mEq p.o. daily Surgical history: Denies Social history: Denies alcohol consumption, drug consumption or smoking. 08/01 - Patient seen and examined at bedside. Has hyperactive bowel sounds. Refused NG tube placement. 08/03 - patient seen and examined. Had a bowel movement earlier this morning, 4 BM yesterday. Soft diet. Patient has been leaving AMA to smoke Objective vital signs Vital Sign Date Time Temp Pulse Resp B/P (MAP) Pulse Ox O2 Delivery O2 Flow Rate FiO2 08/03/24 14:23 98.3 83 16 139/70 93 21 98.3 08/03/24 08:00 Room Air* 0 Total Intake and Output 08/02/24 08/02/24 08/03/24 15:00 23:00 07:00 Intake Total 900 ml 533 ml Output Total 2000 ml 1000 ml Balance -1100 ml -467 ml medications Current Medications Medications Dose Ordered Sig/Ramiro Route Start Time Stop Time Status Last Admin Dose Admin Hydralazine HCl 10 mg Q6HPRN PRN IV 07/31/24 23:45 Metoclopramide HCl 5 mg Q8HP PRN IV 07/31/24 23:45 Ergocalciferol 50,000 unit Q7D PO 08/03/24 07:30 08/03/24 10:08 50,000 UNIT Cyanocobalamin 1,000 mcg DAILY PO 08/03/24 10:00 08/03/24 10:08 1,000 MCG Carvedilol 25 mg DAILY PO 08/03/24 10:00 08/03/24 10:09 25 MG Diagnostic Test (Pha) 1 strip ACHS 08/03/24 11:30 08/03/24 11:30 1 STRIP Insulin Human Regular ACHS SC 08/03/24 11:30 Dextrose 50 ml UD PRN IV 08/03/24 07:30 Albuterol 2.5 mg Q6HWA NEB 08/03/24 12:00 Examination Patient lying in bed, in no acute distress General: Afebrile,, mucosae are moist Cardiovascular: Regular S1 and S2. No murmurs, gallops or rubs. No JVD elevation. No pedal edema Respiratory: Normal B/L air entry on room air. Clear lung sounds on auscultation Abdomen: Soft, nontender, distended, hyperactive bowel sounds, no rebound tenderness, no organomegaly, no masses. Possible periumbilical soft tissue mass mass likely reducible ventral hernia Genitourinary: Deferred MSK/skin: Mobilizes 4 limbs. Skin is dry and warm Neurological: No motor, no sensitive deficits, normal speech. Pupils are isocoric and reactive. Psych/Mental Status: A/Ox3 laboratory and microbiology Laboratory Tests 08/03/24 10:23 Test 08/03/24 10:23 Range/Units Serum Glucose 100 74-106 mg/dL Microbiology Date/Time Source Procedure Growth Status 07/31/24 14:48 Blood Blood Culture - Preliminary NO GROWTH AFTER 48 HOURS OF INCUBATION. Resulted Labs and/or images reviewed: Labs reviewed by me, Image(s) reviewed by me Problem List/Assessment/Plan Problem List/Assessment/Plan Acute abdominal pain due to possible SBO versus ileus SBO versus ileus Likely reducible ventral hernia Intractable nausea and vomiting -CT scan of the abdomen showed compression of L4, all compression of T12-L1 and L2-L3. There was also possible findings of bowel obstruction and splenomegaly -place NG tube at low negative suction. ATTEMPTED 2 TIMES, PATIENT REFUSE NG PLACEMENT AT THIS TIME. -ordered KUB showed Few mildly prominent loops of small bowel in the upper abdomen measure up to 3.3 cm. Mild gaseous distention of colonic loops. -replace potassium -discontinued IV LR at 75cc/hr -surgical consultation-continue conservative management -p.r.n. Reglan -patient refused NG tube placement -prelim blood culture negative Likely diastolic heart failure -echocardiogram shows biatrial enlargement, sigmoid septum, mild aortic stenosis, EF normal. 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 DC planning in a.m.. Plan discussed with patient in which all questions have been answered Goals of care discussed for more than 28 minute, full code status Case discussed with Dr. Gracia Plan discussed with: Patient My Orders My Orders Orders - RENÉE HERRERA RESIDENT Procedure Category Date Status Time Ergocalciferol PHA 08/03/24 In Process (Vitamin D 50,000 07:30 Cyanocobalamin PHA 08/03/24 In Process (Vitamin B-12) 10:00 Carvedilol Tablet PHA 08/03/24 In Process (Coreg Tablet) 10:00 Glucose Blood PHA 08/03/24 In Process (Accu-Chek Comfort 11:30 Insulin R (Human) PHA 08/03/24 In Process (Insulin R) 11:30 Dextrose 50% Syringe PHA 08/03/24 In Process 07:30 Albuterol Medneb PHA 08/03/24 In Process (Ventolin Medneb) 12:00 * Time Study Engineer CONS 08/03/24 Transmitted Consult Soft Diet DIET 08/03/24 Transmitted Lunch Date of Service: Aug 03, 2024 Billing Provider: KEEGAN GRACIA MD Common Visit Codes: [id number] INP/OBS CARE(HIGH) RENÉE HERRERA RESIDENT Aug 03, 2024 14:50 KEEGAN GRACIA MD Aug 05, 2024 21:06
--- NOTE | 2024-08-03 15:35 | DVHPN2 ---
Progress Note Date Seen: Aug 03, 2024 Medical Necessity Reason Pt with a Central, PICC or Fol: No Objective vital signs Vital Sign Date Time Temp Pulse Resp B/P (MAP) Pulse Ox O2 Delivery O2 Flow Rate FiO2 08/03/24 14:23 98.3 83 16 139/70 93 21 98.3 08/03/24 08:00 Room Air* 0 Total Intake and Output 08/02/24 08/02/24 08/03/24 15:00 23:00 07:00 Intake Total 900 ml 533 ml Output Total 2000 ml 1000 ml Balance -1100 ml -467 ml medications Current Medications Medications Dose Ordered Sig/Ramiro Route Start Time Stop Time Status Last Admin Dose Admin Hydralazine HCl 10 mg Q6HPRN PRN IV 07/31/24 23:45 Metoclopramide HCl 5 mg Q8HP PRN IV 07/31/24 23:45 Ergocalciferol 50,000 unit Q7D PO 08/03/24 07:30 08/03/24 10:08 50,000 UNIT Cyanocobalamin 1,000 mcg DAILY PO 08/03/24 10:00 08/03/24 10:08 1,000 MCG Carvedilol 25 mg DAILY PO 08/03/24 10:00 08/03/24 10:09 25 MG Diagnostic Test (Pha) 1 strip ACHS 08/03/24 11:30 08/03/24 11:30 1 STRIP Insulin Human Regular ACHS SC 08/03/24 11:30 Dextrose 50 ml UD PRN IV 08/03/24 07:30 Albuterol 2.5 mg Q6HWA NEB 08/03/24 12:00 laboratory and microbiology Laboratory Tests 08/03/24 10:23 Test 08/03/24 10:23 Range/Units Serum Glucose 100 74-106 mg/dL Microbiology Date/Time Source Procedure Growth Status 07/31/24 14:48 Blood Blood Culture - Preliminary NO GROWTH AFTER 72 HOURS OF INCUBATION. Resulted Problem List/Assessment/Plan Problem List/Assessment/Plan AFEBRILE VSS ABD SOFT NON TENDER BM + RESOLVING SBO/ILEUS JAYA SOFT DIET NURSE AT BEDSIDE Plan discussed with: Patient DANGELO BULL MD Aug 03, 2024 15:35
[2024-08-04] VITALS (10 sets, daily range): BP systolic 125–155; BP diastolic 62–92; PULSE 58–71; RESP 16–20; TEMP 97.3–98.3; O2SAT 92–100
[2024-08-04 07:13] LABS: Anion Gap 7 (5-15); Carbon Dioxide 28 mmol/L (20-31); Sodium 144 mmol/L (136-145)
[2024-08-04 07:17] LABS: Calcium 8.2 mg/dL (8.7-10.4); Chloride 109 mmol/L (98-107)
[2024-08-04 07:19] LABS: Glucose 85 mg/dL (74-106); Magnesium 2.2 mg/dL (1.6-2.6)
[2024-08-04 07:21] LABS: Blood Urea Nitrogen 8 mg/dL (9-23)
--- NOTE | 2024-08-04 13:52 | DVHPN2 ---
Progress Note Date Seen: Aug 04, 2024 Medical Necessity Reason Pt with a Central, PICC or Fol: No Objective vital signs Vital Sign Date Time Temp Pulse Resp B/P (MAP) Pulse Ox O2 Delivery O2 Flow Rate FiO2 08/04/24 11:22 94 Room Air* 0 21 08/04/24 11:07 68 155/99 08/04/24 09:00 98.0 20 98.0 Total Intake and Output 08/03/24 08/03/24 08/04/24 15:00 23:00 07:00 Intake Total 480 ml 800 ml 200 ml Output Total 400 ml Balance 480 ml 400 ml 200 ml medications Current Medications Medications Dose Ordered Sig/Ramiro Route Start Time Stop Time Status Last Admin Dose Admin Hydralazine HCl 10 mg Q6HPRN PRN IV 07/31/24 23:45 Metoclopramide HCl 5 mg Q8HP PRN IV 07/31/24 23:45 Ergocalciferol 50,000 unit Q7D PO 08/03/24 07:30 08/03/24 10:08 50,000 UNIT Cyanocobalamin 1,000 mcg DAILY PO 08/03/24 10:00 08/04/24 11:05 1,000 MCG Carvedilol 25 mg DAILY PO 08/03/24 10:00 08/04/24 11:07 25 MG Diagnostic Test (Pha) 1 strip ACHS 08/03/24 11:30 08/03/24 17:19 1 STRIP Insulin Human Regular ACHS SC 08/03/24 11:30 Dextrose 50 ml UD PRN IV 08/03/24 07:30 Albuterol 2.5 mg Q6HWA NEB 08/03/24 12:00 Aspirin 81 mg DAILY PO 08/05/24 10:00 Atorvastatin Calcium 40 mg HS PO 08/04/24 22:00 laboratory and microbiology Laboratory Tests 08/04/24 05:48 08/03/24 10:23 Test 08/04/24 05:48 Range/Units Serum Glucose 85 74-106 mg/dL Microbiology Date/Time Source Procedure Growth Status 07/31/24 14:48 Blood Blood Culture - Preliminary NO GROWTH AFTER 72 HOURS OF INCUBATION. Resulted Problem List/Assessment/Plan Problem List/Assessment/Plan AFEBRILE VSS ABD SOFT NON TENDER BM + RESOLVING SBO/ILEUS JAYA SOFT DIET CLEARED FOR DISCHARGE Plan discussed with: Other Dietary Evaluation Review Recommendations by RD: Dietary education by RD Comments: 1) Advance to cardiac diet when medically feasible, pending ST approval 2) Encourage optimal PO intake 3) Refer to outpatient RD for weight management 4) Follow-up with cardiology 5) Follow-up with drug abuse social worker r/t polysubstance abuse 6) Continue to monitor I&O, labs, and skin integrity Expected Outcomes/Goals: 1) appetite and labs to improve 2) diet to advance 3) f/u in 3-5 days DANGELO BULL MD Aug 04, 2024 13:52
--- NOTE | 2024-08-04 16:19 | DVHPNRES ---
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 The patient presented to the ED with chief complaint of acute abdominal pain associated with diarrhea. The patient reported diffuse periumbilical pain that started three days ago and progressively got worse. The patient described the pain as cramping type of pain localized in the periumbilical area slightly diffuse with no specific pattern of radiation. The patient rates the pain as a 9/10 on the pain scale. The patient also reports one single isolated episode of vomiting two days ago. The patient reports that has not been eating anything in the past two days. Patient also reports that last bowel movement was today and it was soft/solid in consistency with no visible blood in the stools. Upon admission, CBC and CMP was grossly unremarkable except for mild hypokalemia and positive UA suggesting UTI. Initial CT scan of the abdomen showed old compression fracture at T12-L1, L2-L3 and findings of bowel obstruction. On my examination, abdomen was distended with mild to moderate tenderness to palpation at the periumbilical region where a reducible" small mass" is felt likely due to ventral hernia. We will place NG tube with low negative suction, we will order a KUB, start IV fluids, antibiotics. Surgery was consulted on the case and we will admit the patient for further assessment and management. Past medical history: Hypertension, CVA with right upper extremity weakness and loss of sensitivity Home medications: Atorvastatin 20 mg daily, carvedilol 25 mg daily, furosemide 40 mg daily, glipizide 5 mg daily, ondansetron 4 mg b.i.d., potassium 10 mEq p.o. daily Surgical history: Denies Social history: Denies alcohol consumption, drug consumption or smoking. 08/01 - Patient seen and examined at bedside. Has hyperactive bowel sounds. Refused NG tube placement. 08/03 - patient seen and examined. Had a bowel movement earlier this morning, 4 BM yesterday. Soft diet. Patient has been leaving AMA to smoke 08/04-patient seen and examined. Bowel movement today. DC planning. Objective vital signs Vital Sign Date Time Temp Pulse Resp B/P (MAP) Pulse Ox O2 Delivery O2 Flow Rate FiO2 6/16/25 13:00 98.3 58 18 125/75 (92) 93 98.3 08/04/24 11:22 Room Air* 0 21 Total Intake and Output 08/03/24 08/03/24 08/04/24 15:00 23:00 07:00 Intake Total 480 ml 800 ml 200 ml Output Total 400 ml Balance 480 ml 400 ml 200 ml medications Current Medications Medications Dose Ordered Sig/Ramiro Route Start Time Stop Time Status Last Admin Dose Admin Hydralazine HCl 10 mg Q6HPRN PRN IV 07/31/24 23:45 Metoclopramide HCl 5 mg Q8HP PRN IV 07/31/24 23:45 Ergocalciferol 50,000 unit Q7D PO 08/03/24 07:30 08/03/24 10:08 50,000 UNIT Cyanocobalamin 1,000 mcg DAILY PO 08/03/24 10:00 08/04/24 11:05 1,000 MCG Carvedilol 25 mg DAILY PO 08/03/24 10:00 08/04/24 11:07 25 MG Diagnostic Test (Pha) 1 strip ACHS 08/03/24 11:30 08/03/24 17:19 1 STRIP Insulin Human Regular ACHS SC 08/03/24 11:30 Dextrose 50 ml UD PRN IV 08/03/24 07:30 Albuterol 2.5 mg Q6HWA NEB 08/03/24 12:00 Aspirin 81 mg DAILY PO 08/05/24 10:00 Atorvastatin Calcium 40 mg HS PO 08/04/24 22:00 Examination Patient lying in bed, in no acute distress General: Afebrile,, mucosae are moist Cardiovascular: Regular S1 and S2. No murmurs, gallops or rubs. No JVD elevation. No pedal edema Respiratory: Normal B/L air entry on room air. Clear lung sounds on auscultation Abdomen: Soft, nontender, distended, hyperactive bowel sounds, no rebound tenderness, no organomegaly, no masses. Possible periumbilical soft tissue mass mass likely reducible ventral hernia Genitourinary: Deferred MSK/skin: Mobilizes 4 limbs. Skin is dry and warm Neurological: No motor, no sensitive deficits, normal speech. Pupils are isocoric and reactive. Psych/Mental Status: A/Ox3 laboratory and microbiology Laboratory Tests 08/04/24 05:48 08/03/24 10:23 Test 08/04/24 05:48 Range/Units Serum Glucose 85 74-106 mg/dL Microbiology Date/Time Source Procedure Growth Status 07/31/24 14:48 Blood Blood Culture - Preliminary NO GROWTH AFTER 72 HOURS OF INCUBATION. Resulted Labs and/or images reviewed: Labs reviewed by me, Image(s) reviewed by me Problem List/Assessment/Plan Problem List/Assessment/Plan Acute abdominal pain due to possible SBO versus ileus SBO versus ileus - resolving Likely reducible ventral hernia Intractable nausea and vomiting -CT scan of the abdomen showed compression of L4, all compression of T12-L1 and L2-L3. There was also possible findings of bowel obstruction and splenomegaly -place NG tube at low negative suction. ATTEMPTED 2 TIMES, PATIENT REFUSE NG PLACEMENT AT THIS TIME. -ordered KUB showed Few mildly prominent loops of small bowel in the upper abdomen measure up to 3.3 cm. Mild gaseous distention of colonic loops. -replace potassium -discontinued IV LR at 75cc/hr -surgical consultation-continue conservative management -p.r.n. Reglan -patient refused NG tube placement -prelim blood culture negative Likely diastolic heart failure -echocardiogram shows biatrial enlargement, sigmoid septum, mild aortic stenosis, EF normal. 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 DC planning in a.m.. Plan discussed with patient in which all questions have been answered Goals of care discussed for more than 28 minute, full code status Case discussed with Dr. Slaughter Plan discussed with: Patient My Orders My Orders Orders - RENÉE HERRERA Procedure Category Date Status Time * Claim Clinician CONS 08/04/24 Transmitted Consult Aspirin Enteric PHA 08/05/24 In Process Coated Tablet 10:00 Atorvastatin (Lipitor) PHA 08/04/24 In Process 22:00 Dietary Evaluation Review Recommendations by RD: Dietary education by RD Comments: 1) Advance to cardiac diet when medically feasible, pending ST approval 2) Encourage optimal PO intake 3) Refer to outpatient RD for weight management 4) Follow-up with cardiology 5) Follow-up with social work job titles r/t polysubstance abuse 6) Continue to monitor I&O, labs, and skin integrity Expected Outcomes/Goals: 1) appetite and labs to improve 2) diet to advance 3) f/u in 3-5 days RENÉE HERRERA RESIDENT Aug 04, 2024 16:19
[2024-08-04] MEDS: ASPirin-EC 81 mg tab PO ONE (18:59)
[2024-08-04] MEDS: ATORVASTATIN 20 MG TAB PO SCH (21:35)
[2024-08-05] VITALS (8 sets, daily range): BP systolic 131–142; BP diastolic 66–79; PULSE 64–72; RESP 17–20; TEMP 97.5–98.2; O2SAT 94–96
[2024-08-05] MEDS: ASPirin-EC 81 mg tab PO SCH (09:50)
[2024-08-05] MEDS ORDERED: CARV12.544 PO (09:54)
[2024-08-05] MEDS ORDERED: CYAN-17 PO (11:29)
[2024-08-05] MEDS ORDERED: CHOL20007 OR (11:29)
[2024-08-05] MEDS ORDERED: DOCU-265 PO (11:29)
[2024-08-05] MEDS ORDERED: ASPI-498 OR (11:29)
[2024-08-05] MEDS ORDERED: LACT10SO3 PO (11:29)
--- NOTE | 2024-08-05 15:29 | DVHDSRES ---
Discharge Summary Date of Admission Resident Creating Document: RENÉE HERRERA RESIDENT Aug 01, 2024 at 01:42 Date of Discharge: Aug 05, 2024 Labs/Diagnostic Data: Laboratory Results Test 08/04/24 05:48 08/03/24 17:16 08/03/24 10:23 08/02/24 05:34 Sodium Level 144 mmol/L (136-145) Potassium Level 4.0 mmol/L (3.5-5.1) Chloride Level 109 mmol/L (98-107) Carbon Dioxide Level 28 mmol/L (20-31) Anion Gap 7 (5-15) Blood Urea Nitrogen 8 mg/dL (9-23) Creatinine 0.89 mg/dL (0.550-1.02) Glomerular Filtration Rate Calc 70 mL/min (>90) BUN/Creatinine Ratio 9.0 (10.0-20.0) Serum Glucose 85 mg/dL (74-106) Calcium Level 8.2 mg/dL (8.7-10.4) Magnesium Level 2.2 mg/dL (1.6-2.6) POC Glucose 119 mg/dl (70-106) White Blood Count 3.5 10^3/uL (4.4-10.8) Red Blood Count 4.24 10^6/uL (4.0-5.20) Hemoglobin 12.8 g/dL (12.2-16.2) Hematocrit 38.5 % (36.0-46.0) Mean Corpuscular Volume 90.8 fL (80.0-100.0) Mean Corpuscular Hemoglobin 30.1 pg (28.0-32.0) Mean Corpuscular Hemoglobin Concent 33.2 g/dL (32.0-36.0) Red Cell Distribution Width 15.2 % (11.8-14.3) Platelet Count 119 10^3/uL (140-450) Mean Platelet Volume 8.7 fL (6.9-10.8) Neutrophils (%) (Auto) 61.7 % (37.0-80.0) Lymphocytes (%) (Auto) 27.7 % (10.0-50.0) Monocytes (%) (Auto) 7.3 % (0.0-12.0) Eosinophils (%) (Auto) 2.2 % (0.0-7.0) Basophils (%) (Auto) 1.1 % (0.0-2.0) Neutrophils # (Auto) 2.2 10 ^3/uL (1.6-8.6) Lymphocytes # (Auto) 1.0 10 ^3/uL (0.4-5.4) Monocytes # (Auto) 0.3 10 ^3/uL (0-1.3) Eosinophils # (Auto) 0.1 10 ^3/uL (0-0.8) Basophils # (Auto) 0 10 ^3/uL (0-0.2) Nucleated Red Blood Cells 0.1 % Differential Total Cells Counted 100.0 (100) Neutrophils % (Manual) 50 (37.0-80.0) Band Neutrophils % (Manual) 0 Lymphocytes % (Manual) 42 (10.0-50.0) Monocytes % (Manual) 5 (0-12) Eosinophils % (Manual) 3 (0-7) Basophils % (Manual) 0 (0.0-2.0) Metamyelocytes % (manual) 0 Myelocytes % (Manual) 0 Promyelocytes % (Manual) 0 Blast Cells % (Manual) 0 Reactive Lymphocytes 0 Platelet Estimate Decreased Test 08/02/24 00:02 08/01/24 06:28 07/31/24 17:45 07/31/24 14:31 Urine Opiates Screen Neg (NEGATIVE) Urine Fentanyl Screen Pos (NEGATIVE) Urine Barbiturates Screen Neg (NEGATIVE) Urine Phencyclidine Screen Neg (NEGATIVE) Urine Amphetamines Screen Neg (NEGATIVE) Urine Benzodiazepines Screen Neg (NEGATIVE) Urine Cocaine Screen Pos (NEGATIVE) Urine Cannabinoids Screen Neg (NEGATIVE) Prothrombin Time 11.6 sec (9.3-11.8) Prothrombin Time INR 1.11 (0.9-1.15) Activated Partial Thromboplast Time 27.6 SEC (24.5-34.5) Hemoglobin A1c 5.1 % A1C (<5.7) Triglycerides Level 70 mg/dL (< 150) Cholesterol Level 140 mg/dL (< 200) LDL Cholesterol 95 mg/dL (< 100) HDL Cholesterol 34 mg/dL (40-59) Vitamin B12 Level 169 pg/mL (211-911) Vitamin D 25-Hydroxy 34.3 ng/mL (30.0-100) Thyroid Stimulating Hormone (TSH) 1.04 uIU/mL (0.55-4.78) Troponin I High Sensitivity 12 ng/L (</=34) Lactic Acid Level 0.9 mmol/L (0.4-2.0) Total Bilirubin 1.8 mg/dL (0.2-1.0) Aspartate Amino Transferase (AST) 13 U/L (0-34) Alanine Aminotransferase (ALT) < 9 U/L (7-40) Alkaline Phosphatase 93 U/L (46-116) B-Type Natriuretic Peptide 508.66 pg/mL (0-100) Total Protein 5.7 g/dL (5.7-8.2) Albumin 3.5 g/dL (3.2-4.8) Lipase 31 U/L (12-53) Test 07/31/24 14:00 Urine Color Yellow (Yellow) Urine Clarity Turbid (Clear) Urine pH 6.0 (5.0-9.0) Urine Specific [place] 1.014 (1.001-1.035) Urine Protein Negative (Negative) Urine Ketones Negative (Negative) Urine Blood Negative /uL (Negative) Urine Nitrite Negative (Negative) Urine Bilirubin Negative (Negative) Urine Urobilinogen 2 mg/dL (Negative) Urine Leukocyte Esterase Negative /uL (Negative) Urine RBC 3 /hpf (0 - 4) Urine Microscopic WBC 6 /HPF (0-5) Urine Squamous Epithelial Cells Few /hpf (<5) Urine Bacteria Few /hpf (None Seen) Urine Mucus Few (None Seen) Urine Glucose Normal mg/dL (Normal) Stool Occult Blood Negative (Negative) Stool Occult Blood Sample #3 (Negative) Other Laboratory Tests 08/04/24 05:48 08/03/24 10:23 Brief Hx & Hospital Course: This is a 69-year-old female with past medical history of hypertension, 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 The patient presented to the ED with chief complaint of acute abdominal pain associated with diarrhea. The patient reported diffuse periumbilical pain that started three days ago and progressively got worse. The patient described the pain as cramping type of pain localized in the periumbilical area slightly diffuse with no specific pattern of radiation. The patient rates the pain as a 9/10 on the pain scale. The patient also reports one single isolated episode of vomiting two days ago. The patient reports that has not been eating anything in the past two days. Patient also reports that last bowel movement was today and it was soft/solid in consistency with no visible blood in the stools. Upon admission, CBC and CMP was grossly unremarkable except for mild hypokalemia and positive UA suggesting UTI. Initial CT scan of the abdomen showed old compression fracture at T12-L1, L2-L3 and findings of bowel obstruction. On my examination, abdomen was distended with mild to moderate tenderness to palpation at the periumbilical region where a reducible" small mass" is felt likely due to ventral hernia. We will place NG tube with low negative suction, we will order a KUB, start IV fluids, antibiotics. Surgery was consulted on the case and we will admit the patient for further assessment and management. Past medical history: Hypertension, CVA with right upper extremity weakness and loss of sensitivity Home medications: Atorvastatin 20 mg daily, carvedilol 25 mg daily, furosemide 40 mg daily, glipizide 5 mg daily, ondansetron 4 mg b.i.d., potassium 10 mEq p.o. daily Surgical history: Denies Social history: Denies alcohol consumption, drug consumption or smoking. During the hospitalization,CT scan of the abdomen showed compression of L4, all compression of T12-L1 and L2-L3. There was also possible findings of bowel obstruction and splenomegaly. Patient was kept NPO, NG was offered but patient refused. KUB showed few mild prominent loops of small bowel in the upper abdomen measuring up to 3.3 cm, mild gaseous distention of colonic loops. Surgeon was consulted and recommended medical management. Patient was started on IV fluids, electrolytes were replenished. IA and regular was given. Blood cultures were ordered which were negative. Patient started to have bowel movements, bowel sounds became normoactive and clear liquid diet was started which was tolerated well by the patient. Diet was advanced further to full liquid and then to soft diet. Given the history of stroke aspirin and atorvastatin was continued during the stay. We continued patient's home medication Coreg 25 daily. Supplemented vitamin-D. Discharge plan: government services professional were consulted given the patient is homeless and patient received adequate resources and patient was accepted at room/board at [facility]. Patient was discharged on aspirin 81, docusate 100 b.i.d., lactulose daily. She was also strongly recommended to follow up with surgeon as outpatient, primary care physician as outpatient and [facility]. Patient agreed to discharge planning. Consults/Reason for consult Surgeon consulted for SBO Operations or Procedures ORDERING PHYSICIAN: RAFAEL PADRON DO PROCEDURE(s): ABPL - CT AB PEL WO CON-NO ORAL OR IV REASON: abd pain, distention, nausea and vomiting, HO hernia ORDER NUMBER(s): [id number], ACCESSION NUMBER(s): [id number] Exam: CT CT AB PEL WO CON-NO ORAL OR IV History: abd pain, distention, nausea and vomiting, HO hernia Comparison Study: CT CT AB PEL WO CON-NO ORAL OR IV on DOS: 02/05/23, CT [facility] AB PEL WO CON-NO IV/ORAL on DOS: 08/07/22, [facility] on DOS: 12/04/21 TECHNIQUE: Multidetector CT of the abdomen was performed from lung bases to pubic symphysis. Imaging was performed without IV contrast. Axial, coronal and sagittal multiplanar reformats were obtained from the axial data set by the technologist. Radiation Dose Information: CT Dose: CTDI volume is 25.32 mGy. Dose-length product is 1152.24 mGy*cm FINDINGS: Evaluation of solid organs is limited due to lack of intravenous contrast use. Findings: Lung Bases: No acute or significant lung base finding. Normal heart size. No pleural or pericardial effusion. Liver: The liver is normal in size. No focal lesions. Small amount of ascites around the liver. Gallbladder and Biliary Tree: Unremarkable Spleen: Splenomegaly measuring 14.6 cm long. Pancreas: The pancreas is grossly normal in appearance. Adrenal Glands: Unremarkable Kidneys: Kidneys are grossly normal without calculi or hydronephrosis. Bladder: Grossly unremarkable for degree of distention. Bowel: The stomach is grossly normal in appearance. Small bowel and colon are normal in caliber and distribution. The appendix is not visualized; however, no secondary findings of acute appendicitis identified. Ascites: Absent Lymphadenopathy: No mesenteric, retroperitoneal or periportal lymphadenopathy. Abdominal Wall and Mesentery: Unremarkable. Vasculature: The visualized abdominal aorta is normal in size and caliber. Evaluation of abdominal and pelvic vessels is limited due to lack of intravenous contrast. Pelvic Organs: Musculoskeletal: No aggressive focal bony lesions, acute fractures or dislocation. Mild compression of L4-L3 L2-L1 T12. On previous study there was mild compression of L3 L1 T12. Soft tissues: Unremarkable IMPRESSION: 1. Interval compression of L4. Old compression of T12-L1 L2-L3. 2. Findings of bowel obstruction 3. No calcified gallstones splenomegaly with the spleen measuring 14.6 cm long. On previous study 2022, spleen measured 15 cm long. Radiation optimization: All CT scans at this facility use at least one of these dose optimization techniques: automated exposure control mA and/or kV adjustment per patient size (includes targeted exams where dose is matched to clinical indication) or iterative reconstruction. ATED BY: EULA MOONEY Jr., DO DICTATED DATE/TIME: 07/31/241446 SIGNED BY: EULA MOONEY Jr., SIGNED DATE/TIME: 07/31/241446 CC: ORDERING PHYSICIAN: RENÉE HERRERA PROCEDURE(s): GES - GASTRIC EMPTING STUDY REASON: ? gastroparesis ? obstruction , Diabetic ORDER NUMBER(s): [id number], ACCESSION NUMBER(s): [id number] Procedure: NM GASTRIC EMPTING STUDY Exam Date: 08/01/2024 01:31 PM Reason for study/Clinical History: gastroparesis obstruction , Diabetic Comparison Study: None Nuclear Medicine Solid Gastric Emptying Study Technique: The patient received an oral administration of 1 mCi of technetium 99m sulfur colloid labeled to scrambled eggs as a part of the standardized meal. Quantitative data was obtained from these images and the geometric mean for percent gastric retention was determined at multiple time points. Findings: Percent gastric retention is as follows: One hour 5 % retained, (normal greater than or equal to 70%) Two hour 3 % retained, (normal less than or equal to 60%) Normal passage of radiopharmaceutical is shown into the small intestine. Impression: Increased rate of gastric emptying at 60 minutes and 90 minutes. *Source: Journal of Nuclear [employer] Technology. Vol.36. No.1. April 2007 ATED BY: HERVE DICKERSON MD DICTATED DATE/TIME: 08/01/241633 SIGNED BY: HERVE DICKERSON MD SIGNED DATE/TIME: 08/01/241633 CC: Condition at Discharge: Stable Final Diagnosis/Problems List Acute abdominal pain due to possible SBO Likely reducible ventral hernia Intractable nausea and vomiting Likely diastolic heart failure Ruled out acute cystitis hypokalemia Vitamin B12 deficiency Vitamin-D deficiency Old compression fracture T12-L1, L2-L3 Discharge Disposition: Skilled Nursing Discharge Instruct/Medications Diet: See Comment Diet comment: soft diet, advance slowly avoid constipation Activity: No Restrictions, As Tolerated Follow Up/Referral: Follow up with surgeon as outpatient within 7 days Follow up with [facility] within 7 days Follow up with PCP within 7 days Medications: Lactulose 30 ml daily Docusate 100mg twice daily Discharge Statement: "Patient was advised to return to the ER or call 911 if any headaches, dizziness, shortness of breath, chest pain, abdominal pain, bleeding, fevers, or worsening of medical condition. Patient was counseled about treatment plan, medications, possible side effects, patientverbalized understanding. All questions were answered to the best of my ability. This discharge took greater then 30 minutes in planning, reviewing documentation, counseling the patient, and discussing with other team members." ASSESSMENT ASSESSMENT Assessment Acute abdominal pain due to possible SBO RENÉE HERRERA RESIDENT Aug 05, 2024 15:29
== END 2024-08-05 17:15 | disposition home or self-care (01) | DRG 388 ==
LOC: EDBD 13:41 → ER 13:41 → OVERFLOW 08-01 01:42 → EAST 08-01 03:57
PROVIDERS: ADMIT Student in an Organized Health Care Education/Training Program; ATTEND Emergency Medicine
DX: K56.609 Unspecified intestinal obstruction, unspecified as to partial versus complete obstruction (principal); I50.33 Acute on chronic diastolic (congestive) heart failure; N39.0 Urinary tract infection, site not specified; K43.9 Ventral hernia without obstruction or gangrene; E87.6 Hypokalemia; E53.8 Deficiency of other specified B group vitamins; E11.9 Type 2 diabetes mellitus without complications; I11.0 Hypertensive heart disease with heart failure; J44.9 Chronic obstructive pulmonary disease, unspecified; E78.5 Hyperlipidemia, unspecified; Z88.0 Allergy status to penicillin; Z88.8 Allergy status to other drugs, medicaments and biological substances; Z79.82 Long term (current) use of aspirin; Z79.899 Other long term (current) drug therapy; Z79.891 Long term (current) use of opiate analgesic; Z79.1 Long term (current) use of non-steroidal anti-inflammatories (NSAID); Z80.49 Family history of malignant neoplasm of other genital organs; Z80.51 Family history of malignant neoplasm of kidney; Z82.49 Family history of ischemic heart disease and other diseases of the circulatory system; Z83.3 Family history of diabetes mellitus
CPT/HCPCS: 36415; 71045; 74018; 74176; 78264; 80048; 80053; 80061; 80307; 81001; 82270; 82306; 82607; 82962; 83036; 83605; 83690; 83735; 83880; 84443; 84484; 85007; 85025; 85027; 85610; 85730; 87040; 93005; 93306; 96365; 96375; 99291; G0378; J1956; J3490